=== PATIENT | male | born 1965 | race Caucasian/White ===

== ENCOUNTER 2022-03-11 00:36 | Day surgery (SDC) | payer BC, SELFPAY ==
[2022-03-03 13:49] VITALS: BMI 30.2
--- NOTE | 2022-03-03 13:55 | SUR.PREOP ---
Report to the Outpatient Waiting Room, entrance under the green pavilion located off [facility], at time 1000_ on date _03/11/22 . OR Time: _1200 . - You and your visitor will be asked a series of questions to screen for COVID 19 for your protection. - A mask is required within the hospital. Preoperative COVID Testing Requirements: No COVID Test needed if: (proof is required; if not received patient will have Rapid Test prior to entry) - Patient has received COVID Vaccine at least 14 days prior to procedure date or - Patient has positive COVID test result within last 90 days of surgery date. COVID Test needed if above criteria is not met If not COVID vaccinated a COVID test must be conducted within 72 hours of surgery and patient is asked to isolate self from time of testing until procedure. You will go to the [facility] for your COVID testing. The [facility] is located at the corner of [address] [facility]. You will only be called if COVID results are positive and your surgeon may reschedule your elective surgery date. Patients may have clear liquids (water, carbonated beverages, clear teas, apple juice) until 3 hours prior to surgery with a maximum of 20 ounces. - No food from midnight until time of surgery - Infants may have breast milk until 4 hours before surgery, formula 6 hours prior to surgery. - Children will be allowed to drink immediately following surgery. If applicable, please bring a bottle or sippy cup to assist with drinking. Juice, water, soda, and popsicles are readily available. For infants on formula, please bring formula the day of surgery. Pacifiers are allowed. Take the following medications with a SIP of water the morning of surgery: __amlodipine,sertaline,__metoprolol Medications to discontinue per physician __eliquis Date to take last dose_03/08/22 Please no make-up, nail german, hairspray, perfume, deodorant, or body powder the day of surgery. No jewelry (including any body piercings) or valuables the day of surgery, leave them at home. Please take a shower or bath the night before, or the morning of, surgery with an antibacterial soap. Wear comfortable, loose fitting clothing. Children are encouraged to wear pajamas. - Jewelry must be removed prior to entering the operating room. Rings and piercings that are not removed may be cut off. - The hospital will not accept responsibility for valuables. - Please leave all valuables, including medications, at home the day of surgery. rusty shower am of surgery If you are going home after surgery, a licensed motor coach driver must drive you home. - NO public transportation without another adult. - We recommend that an adult stay with you for 24 hours following discharge. - We also recommend that you do not drive, make important decision, drink alcoholic beverages, or take any drugs that were not prescribed by your health care provider for at least 24 hours after your discharge time. For Pediatric surgeries, we recommend two adults accompany the child home (only one inside the building at this time). One visitor will be allowed to accompany the patient into the hospital. Patients visitor will be instructed to remain with patient at all times or leave the building. We will allow the visitor to come back to the postoperative area when patient is ready. Follow any additional instructions given to you from your surgeon. Telephone instructions given to _angie greenwood and asked if any additional questions and then verbalized understanding. Patient advised to call surgeon office or pre surgery nurse liaison [phone] if any additional questions.
[2022-03-11] VITALS (11 sets, daily range): BP systolic 140–164; BP diastolic 90–102; PULSE 64–78; RESP 12–18; TEMP 36.2–36.6; O2SAT 96–100; BMI 30.1
[2022-03-11] MEDS: ACETAMINOPHEN 500 MG TABLET 1000 MG PO (10:33)
[2022-03-11] MEDS: KETOROLAC 15 MG/ML VIAL (*BKC) IV PUSH (10:33)
--- NOTE | 2022-03-11 10:34 | WPDANESEPPF ---
Anes - Initial Pre Proc Eval Procedure: Operation Date: 03/11/22 12:00 Proposed Procedures p Robotic Assisted Right Inguinal Hernia Repair with Mesh - Suly Blakely MD Date/Time: 03/11/22 10:34 Surgeon: Suly Blakely MD Pre Op Diagnosis: right inguinal hernia Patient Data Age: 56 Gender: M Height: 1.85 m Weight: 103.6 kg Last Vital Signs Temp 36.2 C L 03/11/22 10:17 Pulse 68 03/11/22 10:17 Resp 18 03/11/22 10:17 BP 152/99 H 03/11/22 10:17 Pulse Ox 100 03/11/22 10:17 Allergies Allergy/AdvReac Type Severity Reaction Status Date / Time amoxicillin Allergy Mild Skin Verified 03/11/22 10:12 Reaction Home Medications Medication Instructions Recorded Confirmed Type loratadine 10 mg tablet 10 mg PO DAILY #90 tablet 04/16/21 03/11/22 Rx albuterol sulfate 90 mcg/actuation 1 puff INHALATION Q6H PRN #8.5 g 11/17/21 03/11/22 Rx aerosol inhaler finasteride 5 mg tablet 5 mg PO DAILY 11/17/21 03/11/22 History pantoprazole 20 mg tablet,delayed 20 mg PO QAM #30 tablet 12/23/21 03/11/22 Rx release metoprolol succinate 25 mg 25 mg PO DAILY #30 tablet 01/29/22 03/11/22 Rx tablet,extended release 24 hr amlodipine 5 mg PO DAILY 03/03/22 03/11/22 History apixaban [Eliquis] 5 mg PO BID 03/03/22 03/11/22 History cyclobenzaprine 10 mg PO PRN 03/03/22 03/11/22 History furosemide 40 mg PO DAILY 03/03/22 03/11/22 History losartan 100 mg PO DAILY 03/03/22 03/11/22 History potassium chloride 20 meq PO WEEKLY 03/03/22 03/11/22 History sertraline 50 mg PO DAILY 03/03/22 03/11/22 History sildenafil (pulm.hypertension) 20 mg PO PRN 03/03/22 03/03/22 History Patient hx anesthesia problems: none Family hx anesthesia problems: none Results Review: All pre-operative results and documents have been reviewed as part of the pre-operative evaluation. [facility] Past Medical History Medical History Atrial fibrillation BMI 28.0-28.9,adult BMI 31.0-31.9,adult GERD (gastroesophageal reflux disease) History of Legionnaire's disease HTN (hypertension) Inguinal mass Legionella pneumonia Rash SOB (shortness of breath) Surgical History Surgical History Status post laparoscopic cholecystectomy Family History Family History Father Family history of Alzheimer's disease Other Hypertension Social History Social History Smoking packs per day: 1 Smoking cigarettes per day: 20.0 Years smoked: 25 Smoking pack-years: 25.00 Smoking status: Former smoker Tobacco type: cigarettes Second hand tobacco smoke exposure: No Smoking end date: 10/21/21 Additional smoking assessment comments: 1 pkd cigarettes x 15years Alcohol intake: current Drinks per week: 2 Alcohol use details: wine Substance use: current Substance use type: marijuana Other substance usage details: smoking occasionally Gender identity (if verbalized by the patient): Male Sexual Orientation (if Verbalized by the Patient): Straight or Heterosexual Spiritual care concerns: No Anes - Eval Final PreProcedure Day of Procedure 03/11/22 10:34 Patient weight: obese Heart: regular rate and rhythm Lungs: clear to auscultation and normal air movement Airway: Mallampati scale class II Neurological: alert and oriented Last oral intake: >/= 8 hours ASA classification: III Emergent: no Anesthetic plan: proceed Anesthesia type and monitoring: general ETT and standard monitoring Results Review: All pre-operative results and documents have been reviewed as part of the pre-operative evaluation. Informed Consent: The patient's anesthetic plan and its attendant risks and benefits were discussed with the patient/family/POA. Questions were solicited and answers provided to the satisfaction of the patient/family/POA
[2022-03-11] MEDS: LACTATED RINGERS 1,000 ML 30 ML IV CONT ×2 (10:41→13:43)
--- NOTE | 2022-03-11 10:45 | PM.IMHP ---
H&P: HPI History of Present Illness Date/Time: 03/11/22 10:45 Negrito is a 56 y/o male who presents to the office at the request of Dr. Arboleda for evaluation of a possible inguinal hernia. He states he has been experiencing RLQ abdominal swelling since October 2021. He states he is not experiencing any pain. He denies any problems with BM's. Pt had a CT at OSH in 11/10 that was suggestive of RIH. Chief Complaint: RIH Review of Systems Review of Systems: All systems reviewed & are unremarkable except as noted in HPI and below PMFSH Past Medical History Medical History Atrial fibrillation BMI 28.0-28.9,adult BMI 31.0-31.9,adult GERD (gastroesophageal reflux disease) History of Legionnaire's disease HTN (hypertension) Inguinal mass Legionella pneumonia Rash SOB (shortness of breath) Surgical History Surgical History Status post laparoscopic cholecystectomy Family History Family History Father Family history of Alzheimer's disease Other Hypertension Social History Social History Smoking packs per day: 1 Smoking cigarettes per day: 20.0 Years smoked: 25 Smoking pack-years: 25.00 Smoking status: Former smoker Tobacco type: cigarettes Second hand tobacco smoke exposure: No Smoking end date: 10/21/21 Additional smoking assessment comments: 1 pkd cigarettes x 15years Alcohol intake: current Drinks per week: 2 Alcohol use details: wine Substance use: current Substance use type: marijuana Other substance usage details: smoking occasionally Gender identity (if verbalized by the patient): Male Sexual Orientation (if Verbalized by the Patient): Straight or Heterosexual Spiritual care concerns: No Meds Home Medications and Allergies Home Medications Medication Instructions Recorded Confirmed Type loratadine 10 mg tablet 10 mg PO DAILY #90 tablet 04/16/21 03/11/22 Rx albuterol sulfate 90 mcg/actuation 1 puff INHALATION Q6H PRN #8.5 g 11/17/21 03/11/22 Rx aerosol inhaler finasteride 5 mg tablet 5 mg PO DAILY 11/17/21 03/11/22 History pantoprazole 20 mg tablet,delayed 20 mg PO QAM #30 tablet 12/23/21 03/11/22 Rx release metoprolol succinate 25 mg 25 mg PO DAILY #30 tablet 01/29/22 03/11/22 Rx tablet,extended release 24 hr amlodipine 5 mg PO DAILY 03/03/22 03/11/22 History apixaban [Eliquis] 5 mg PO BID 03/03/22 03/11/22 History cyclobenzaprine 10 mg PO PRN 03/03/22 03/11/22 History furosemide 40 mg PO DAILY 03/03/22 03/11/22 History losartan 100 mg PO DAILY 03/03/22 03/11/22 History potassium chloride 20 meq PO WEEKLY 03/03/22 03/11/22 History sertraline 50 mg PO DAILY 03/03/22 03/11/22 History sildenafil (pulm.hypertension) 20 mg PO PRN 03/03/22 03/03/22 History Allergies Allergy/AdvReac Type Severity Reaction Status Date / Time amoxicillin Allergy Mild Skin Verified 03/11/22 10:12 Reaction Vital Signs Vital Signs - 24 hr 03/11/22 10:17 Temperature 36.2 C L Pulse Rate 68 Respiratory Rate 18 Blood Pressure 152/99 H Pulse Oximetry 100 Exam Const: General: cooperative, comfortable and no acute distress Orientation/consciousness: patient oriented x3 Resp: Effort & Inspection: normal respiratory effort Auscultation: clear to auscultation bilaterally Cardio: Rate: regular rate Rhythm: regular rhythm GI: Inspection: normal to inspection and non-distended GI Palp: Yes Soft to palpation, No Tenderness to palpation present (GI) and No Guarding due to palpation present (GI) Other: RIH - moderate sized, reducible Assessment and Plan Assessment and plan (1) Right inguinal hernia: Code(s): K40.90 - Unilateral inguinal hernia, without obstruction or gangrene, not specified as recurrent Status: Acute Assessment and Pl
--- NOTE | 2022-03-11 10:47 | WPDHPUPDATE1 ---
History and Physical Update Update Date/Time: 03/11/22 10:47 History and Physical has been reviewed, including an updated exam of the patient. There are NO changes in the patient's condition. Risks, benefits, and alternatives have been discussed and questions answered. Patient agrees to proceed with procedure.
[2022-03-11] MEDS: ceFAZolin 2 GM/D5W 50 ML 2 GM/50 ML BAG IVPB (11:56)
--- NOTE | 2022-03-11 13:31 | P.OP_ITS ---
Procedure Note - Detailed Date of Procedure 03/11/22 Pre-op Diagnosis right inguinal hernia Post-op Diagnosis Same Procedure Performed robotic assisted right inguinal hernia repair with mesh Surgeon Suly Blakely MD Anesthesia General Indications 56-year-old male with progressively worsening right inguinal hernia over the last few years Findings indirect right inguinal hernia, large lipoma of cord Description of Procedure Patient was brought into the operating room and placed in the supine position. After adequate induction of general anesthesia, the patient was prepped and draped in normal sterile fashion. A time-out was then done to verify the patient's identity, as well as the procedure being performed. Began by making a 8 mm incision in the supraumbilical region, a Veress needle was then placed into the peritoneal cavity. CO2 gas was then insufflated and after adequate pneumoperitoneum was achieved, the Veress needle was removed. I then placed an 8 mm trocar through this incision. I then placed the endoscope through this trocar site and under direct visualization placed 2 further 8 mm ports in the right and left mid abdomen. The [employer] robot was then docked to the 3 trocar sites. I then scrubbed out and went to the robotic console. Upon examining the pelvis, it was noted that the patient had a right inguinal hernia. The left side was examined and no hernia defect was noted. I began by making a preperitoneal flap approximately 6 cm superior to the defect. This flap was carried medially past the umbilical ligaments in laterally to the transversalis. It then began dissection of my medial compartment taking this down to the pubic tubercle. I then began the lateral dissection taking this down to the transversalis fascia. Once these compartments were achieved, I began dissection around the cord structures. A moderate indirect hernia was noted at this point. Using careful dissection, was able to reduce indirect hernia sac off the cord structures. There was also noted to be a large lipoma of the cord that I also reduced. Once this was adequately done, I went ahead and placed a large piece of 3D Max mesh into the abdominal cavity. The mesh was carefully positioned, centering the center of the mesh over the indirect defect. Once this was done, was very satisfied with our repair. Using 3-0 Vicryl sutures, I tacked the mesh medially to Rui's ligament. Two lateral sutures were placed from the mesh to the transversalis fascia. I then closed the peritoneal flap with a running 2.0 V Lock suture. The abdomen was then desufflated, and all ports were removed. All incisions were then closed with the 4.0 monocryl suture. Dermabond was placed on each wound. The patient tolerated the procedure well, was extubated in the operating room postoperatively, and will now be transferred to the recovery room in stable condition. Implants large 3DMax mesh Estimated Blood Loss 10 Drains No Packing No Pathology None sent Complications No immediate complications Condition Stable Disposition PACU
[2022-03-11] MEDS: fentaNYL CITRATE INJ (*CRX) 100 MCG/2 ML VIAL 25 MCG IV PUSH ×8 (14:12→14:43)
[2022-03-11] MEDS: oxyCODONE HCL (*CRX) 5 MG TAB IR PO (15:35)
== END 2022-03-11 16:11 | disposition home or self-care (01) ==
PROVIDERS: PCP Family Medicine; Visit Provider Surgery
PROC: 8E0Y4CZ Robotic Assisted Procedure of Lower Extremity, Percutaneous Endoscopic Approach (ICD-10-PCS; CPT 49650; principal; 2022-03-11 12:00)
DX: K40.90 Unilateral inguinal hernia, without obstruction or gangrene, not specified as recurrent (principal); I10 Essential (primary) hypertension; K21.9 Gastro-esophageal reflux disease without esophagitis; I48.91 Unspecified atrial fibrillation; Z87.891 Personal history of nicotine dependence; E66.9 Obesity, unspecified; Z68.30 Body mass index [BMI] 30.0-30.9, adult; F12.90 Cannabis use, unspecified, uncomplicated; Z79.51 Long term (current) use of inhaled steroids; Z79.01 Long term (current) use of anticoagulants
CPT/HCPCS: 49650; S2900; 36415; 86850; 86900; 86901; A9270; C1781; J0690; J1100; J1170; J1885; J2250; J2405; J2704; J2710; J3010; J7030; J7120

== ENCOUNTER → 2022-07-22 08:37 | Outpatient (CLI) | payer BC, SELFPAY ==
--- NOTE | ~2022-07-22 | US_ITS ---
EXAMINATION: US abdomen complete DATE: 07/22/2022 09:02 INDICATION: Diarrhea, unspecified. TECHNIQUE: Multiple grayscale and Doppler ultrasound images of the abdomen were obtained. COMPARISON: Ultrasound 11/10/2011, CT abdomen and pelvis 08/29/2010 FINDINGS: The visualized portions of the head and body of the pancreas are normal. There is a 12 mm c yst in the liver. No liver surface nodularity. There is normal flow in main portal vein. The gallblad diana is absent. The common duct is normal and measures 6 mm. The kidneys are normal in size. The splee n is normal in size. Abdominal aorta is normal in caliber. Inferior vena cava is normal. IMPRESSION: 1. No etiology for the patient's symptoms. Reviewed, dictated and finalized at location A.
== END ==
PROVIDERS: PCP Nurse Practitioner Family; Visit Provider Nurse Practitioner Family
DX: R19.7 Diarrhea, unspecified (principal); R10.30 Lower abdominal pain, unspecified
CPT/HCPCS: 76700

== ENCOUNTER 2022-08-04 00:55 | Day surgery (SDC) | payer BC, SELFPAY ==
[2022-07-27 13:13] VITALS: BMI 31.4
[2022-07-27 13:44] VITALS: BMI 31.4
--- NOTE | 2022-07-27 13:47 | PC.NURSE ---
Phone interview for upcoming procedure completed. Instructed pt. to stop using Eliquis 2 days before procedure on 08/04/22. Pt. verbalized understanding.
--- NOTE | 2022-08-02 14:05 | PM.HPGS ---
History of Present Illness History of Present Illness Consent: Risks, benefits, and alternatives have been discussed and questions answered. Patient agrees to proceed with procedure. Chief complaint: diarrhea, abdominal pain Narrative: Negrito Garcia is a 56 year old male referred for colon cancer screening. He has a history of polyps. His last colonoscopy was 10 years ago. He recently has had very loose stools for the past several weeks accompanied by lower abdominal cramping. Review of Systems Review of Systems: All systems reviewed & are unremarkable except as noted in HPI and below PMFSH Past Medical History Medical History Atrial fibrillation BMI 28.0-28.9,adult BMI 31.0-31.9,adult GERD (gastroesophageal reflux disease) History of Legionnaire's disease HTN (hypertension) Inguinal mass Legionella pneumonia Rash SOB (shortness of breath) Surgical History Surgical History History of inguinal hernia repair ROBOTIC ASSISTED RIH REPAIR W MESH 03/11/22 Status post laparoscopic cholecystectomy Family History Family History Father Family history of Alzheimer's disease Malignant neoplasm of prostate Sibling Diverticula of colon Other Hypertension Social History Social History Smoking packs per day: 0.75 Smoking cigarettes per day: 15.0 Years smoked: 20 Smoking pack-years: 15.00 Smoking status: Current every day smoker Tobacco type: cigarettes Second hand tobacco smoke exposure: No Additional smoking assessment comments: 1 pkd cigarettes x 15years, claimed today 0.5 packs x 8 years Alcohol intake: current Drinks per week: 7 Alcohol use details: wine Substance use: never Substance use type: marijuana Other substance usage details: smoking occasionally Living arrangements: alone Gender identity (if verbalized by the patient): Male Sexual Orientation (if Verbalized by the Patient): Straight or Heterosexual Spiritual care concerns: No Meds Home Medications and Allergies Home Medications Medication Instructions Recorded Confirmed Type loratadine 10 mg tablet (Claritin) 10 mg PO DAILY #90 tabs 04/16/21 08/04/22 Rx albuterol sulfate 90 mcg/actuation 1 puff inhalation Q6H PRN 11/17/21 08/04/22 Rx aerosol inhaler shortness of breath or wheezing #8.5 grams finasteride 5 mg tablet 5 mg PO DAILY 11/17/21 08/04/22 History amlodipine 10 mg tablet 5 mg PO DAILY 03/03/22 08/04/22 History apixaban 2.5 mg tablet (Eliquis) 5 mg PO BID 03/03/22 08/04/22 History cyclobenzaprine 10 mg tablet 10 mg PO PRN 03/03/22 08/04/22 History furosemide 40 mg tablet 20 mg PO DAILY 03/03/22 08/04/22 History pantoprazole 20 mg tablet,delayed 20 mg PO QAM #30 tabs 04/20/22 08/04/22 Rx release (Protonix) acetaminophen 650 mg 650 mg PO Q8H PRN pain #30 tabs 04/28/22 08/04/22 Rx tablet,extended release (Tylenol Arthritis Pain) sildenafil 100 mg tablet 100 mg PO DAILY PRN sexual 06/17/22 08/04/22 Rx activity #5 tabs sertraline 50 mg tablet 50 mg PO DAILY #90 tabs 06/24/22 08/04/22 Rx metoprolol succinate 25 mg 25 mg PO DAILY #30 tabs 07/07/22 08/04/22 Rx tablet,extended release 24 hr Allergies Allergy/AdvReac Type Severity Reaction Status Date / Time amoxicillin Allergy Mild Skin Verified 08/04/22 07:25 Reaction Exam Resp: Auscultation: clear to auscultation bilaterally Cardio: Rate: regular rate Rhythm: regular rhythm GI: GI Palp: Yes Soft to palpation and No Tenderness to palpation present (GI) Assessment and Plan Assessment and plan (1) Colon cancer screening: Code(s): Z12.11 - Encounter for screening for malignant neoplasm of colon Status: Acute Assessment and Plan: Colonoscopy with possible biopsy or polypectomy or caut
[2022-08-04 07:26] VITALS: BP 158/107; PULSE 85; RESP 18; TEMP 36.9; O2SAT 98; BMI 30.6
[2022-08-04] MEDS: LACTATED RINGERS 1,000 ML 150 ML IV CONT (07:42)
[2022-08-04 07:44] VITALS: BP 149/96
--- NOTE | 2022-08-04 07:54 | WPDANESEPPF ---
Anes - Initial Pre Proc Eval Procedure: Operation Date: 08/04/22 08:30 Proposed Procedures p Colonoscopy - Anoop De Jesus MD Date/Time: 08/04/22 07:54 Surgeon: Anoop De Jesus MD Pre Op Diagnosis: diarrhea, abdominal pain Patient Data Age: 56 Gender: M Height: 1.83 m Weight: 102.4 kg Last Vital Signs Temp 36.9 C 08/04/22 07:26 Pulse 85 08/04/22 07:26 Resp 18 08/04/22 07:26 BP 149/96 H 08/04/22 07:44 Pulse Ox 98 08/04/22 07:26 O2 Del Method Room Air 08/04/22 07:26 Allergies Allergy/AdvReac Type Severity Reaction Status Date / Time amoxicillin Allergy Mild Skin Verified 08/04/22 07:25 Reaction Home Medications Medication Instructions Recorded Confirmed Type loratadine 10 mg tablet (Claritin) 10 mg PO DAILY #90 tabs 04/16/21 08/04/22 Rx albuterol sulfate 90 mcg/actuation 1 puff inhalation Q6H PRN 11/17/21 08/04/22 Rx aerosol inhaler shortness of breath or wheezing #8.5 grams finasteride 5 mg tablet 5 mg PO DAILY 11/17/21 08/04/22 History amlodipine 10 mg tablet 5 mg PO DAILY 03/03/22 08/04/22 History apixaban 2.5 mg tablet (Eliquis) 5 mg PO BID 03/03/22 08/04/22 History cyclobenzaprine 10 mg tablet 10 mg PO PRN 03/03/22 08/04/22 History furosemide 40 mg tablet 20 mg PO DAILY 03/03/22 08/04/22 History pantoprazole 20 mg tablet,delayed 20 mg PO QAM #30 tabs 04/20/22 08/04/22 Rx release (Protonix) acetaminophen 650 mg 650 mg PO Q8H PRN pain #30 tabs 04/28/22 08/04/22 Rx tablet,extended release (Tylenol Arthritis Pain) sildenafil 100 mg tablet 100 mg PO DAILY PRN sexual 06/17/22 08/04/22 Rx activity #5 tabs sertraline 50 mg tablet 50 mg PO DAILY #90 tabs 06/24/22 08/04/22 Rx metoprolol succinate 25 mg 25 mg PO DAILY #30 tabs 07/07/22 08/04/22 Rx tablet,extended release 24 hr Patient hx anesthesia problems: none Family hx anesthesia problems: none Results Review: All pre-operative results and documents have been reviewed as part of the pre-operative evaluation. [facility] Past Medical History Medical History Atrial fibrillation BMI 28.0-28.9,adult BMI 31.0-31.9,adult GERD (gastroesophageal reflux disease) History of Legionnaire's disease HTN (hypertension) Inguinal mass Legionella pneumonia Rash SOB (shortness of breath) Surgical History Surgical History History of inguinal hernia repair ROBOTIC ASSISTED RIH REPAIR W MESH 03/11/22 Status post laparoscopic cholecystectomy Family History Family History Father Family history of Alzheimer's disease Malignant neoplasm of prostate Sibling Diverticula of colon Other Hypertension Social History Social History Smoking packs per day: 0.75 Smoking cigarettes per day: 15.0 Years smoked: 20 Smoking pack-years: 15.00 Smoking status: Current every day smoker Tobacco type: cigarettes Second hand tobacco smoke exposure: No Additional smoking assessment comments: 1 pkd cigarettes x 15years, claimed today 0.5 packs x 8 years Alcohol intake: current Drinks per week: 7 Alcohol use details: wine Substance use: never Substance use type: marijuana Other substance usage details: smoking occasionally Living arrangements: alone Gender identity (if verbalized by the patient): Male Sexual Orientation (if Verbalized by the Patient): Straight or Heterosexual Spiritual care concerns: No Anes - Eval Final PreProcedure Day of Procedure 08/04/22 07:54 Patient weight: obese Heart: regular rate and rhythm Lungs: clear to auscultation Airway: Mallampati scale class II Neurological: alert and oriented Last oral intake: >/= 8 hours ASA classification: III Emergent: no Anesthetic plan: proceed Anesthesia type and monitoring: general GIVS and standard monitori
[2022-08-04 08:56] VITALS: BP 137/97; PULSE 77; RESP 15; O2SAT 100
[2022-08-04 09:06] VITALS: BP 184/116; PULSE 67; RESP 16; O2SAT 100
[2022-08-04] MEDS: hydrALAZINE HCL 20 MG/ML VIAL 10 MG IV PUSH (09:21)
[2022-08-04 09:33] VITALS: BP 175/108; PULSE 71; RESP 22; O2SAT 100
[2022-08-04 09:43] VITALS: BP 175/95; PULSE 75; RESP 17; O2SAT 100
--- NOTE | 2022-08-04 09:48 | SUR.PHASEII ---
Per Dr. Bhardwaj patient blood pressure is stable to go home, Patient recommended to call primary care physician to follow up with high blood pressure.
== END 2022-08-04 09:53 | disposition home or self-care (01) ==
PROVIDERS: PCP Nurse Practitioner Family; Visit Provider Internal Medicine Gastroenterology
PROC: 0DJD8ZZ Inspection of Lower Intestinal Tract, Via Natural or Artificial Opening Endoscopic (ICD-10-PCS; CPT 45378; principal; 2022-08-04 08:30)
DX: Z12.11 Encounter for screening for malignant neoplasm of colon (principal); K57.30 Diverticulosis of large intestine without perforation or abscess without bleeding; I48.91 Unspecified atrial fibrillation; K21.9 Gastro-esophageal reflux disease without esophagitis; I10 Essential (primary) hypertension; F17.210 Nicotine dependence, cigarettes, uncomplicated; F12.90 Cannabis use, unspecified, uncomplicated; E66.9 Obesity, unspecified; Z68.30 Body mass index [BMI] 30.0-30.9, adult; Z79.51 Long term (current) use of inhaled steroids; Z79.01 Long term (current) use of anticoagulants
CPT/HCPCS: 45380; 88305; J0360; J2704; J7120

== ENCOUNTER 2023-06-25 11:59 | Inpatient (IN) | payer BC, SELFPAY ==
[2023-06-25] VITALS (11 sets, daily range): BP systolic 105–138; BP diastolic 64–105; PULSE 90–116; RESP 15–18; TEMP 36.6–38.3; O2SAT 96–100; BMI 31.4
--- NOTE | ~2023-06-25 | CT_ITS ---
EXAMINATION: CT abdomen pelvis w con DATE: 06/25/2023 13:41 INDICATION: Generalized abdominal pain TECHNIQUE: Computed tomography (CT) of the abdomen and pelvis was performed with 100 mL Omnipaque-350 intravenous contrast. Automated exposure control and iterative reconstruction technique were employe d. The dose-length product was 940.49 mGy-cm. COMPARISON: 08/29/2010 FINDINGS: Mild bibasilar atelectasis. Heart size is normal. Small amount of atherosclerotic coronary artery brenda cifications. No pericardial or pleural effusion. There is dilation of the common bile duct to 1.2 cm and mild intrahepatic biliary ductal dilation, both findings are new since ultrasound dated 07/22/2022. Cholecystectomy clips in the gallbladder fossa. There are few subcentimeter low-attenuation hepatic cysts. Approximately 1 cm less well-defined and more subtle hyperenhancing lesion in segment 5 of the liver. Splenic calcification consistent with old granulomatous disease. Pancreas is normal. Thickeni ng of the bilateral adrenal glands which maintain their adreniform shape which could represent adrena l hyperplasia or small adenomas. Small focus of cortical scarring at the upper pole of the right kidn ey. 2.2 cm cyst at the upper pole of the left kidney. There are a few <4 mm stones in the right kidne y including a cluster a lower pole calyx. There is mild diverticulosis most prominent along the proxi mal sigmoid colon where there is diffuse edematous wall thickening and surrounding inflammatory stran ding. This extends over a length of approximately 10-15 cm with the stranding surrounding many of the diverticula which remains equivocal for either a localized colitis versus diverticulitis. Small amou nt of likely reactive ascites in the pelvis. No abscess or free intraperitoneal gas. Small bowel and appendix are normal. Bladder is normal. Small fat-containing left inguinal hernia. No pathologically enlarged abdominal or pelvic lymphadenopathy. Mild to moderate lumbar and lower thoracic spondylosis. IMPRESSION: 1. Edematous wall thickening and surrounding inflammatory stranding along approximately 10 to 15 cm l ength of the proximal sigmoid colon where there are multiple diverticula. The pancreas appears more d iffuse and would favor a focal colitis over diverticulitis. 2. Small amount of likely reactive ascites in the pelvis. No organized abscess or free intraperitonea l gas. 3. Mild intra and extra hepatic biliary ductal dilation which can be a normal finding postcholecystec rubi however is new since 07/22/2022 with the cholecystectomy performed in August 2010. This suggests the possibility of more recent obstruction although no discrete destructive gallstone or mass identif ied. Correlate with liver function tests and if clinically indicated could consider further evaluatio n with MRCP. 4. Indeterminate approximately 1 cm subtle hypoenhancing lesion in segment 5 of the liver which could be either benign or malignant in etiology. Consider further evaluation with pre and postcontrast MRI which could be performed in conjunction with MRCP if clinically indicated. Reviewed, dictated and finalized at location [facility]. IMPRESSION: 1. Edematous wall thickening and surrounding inflammatory stranding along appro ximately 10 to 15 cm length of the proximal sigmoid colon where there are multi ple diverticula. The pancreas appears more diffuse and would favor a focal coli tis over diverticulitis. 2. Small amount of likely reactive ascites in the pelvis. No organized abscess or free intraperitoneal gas. 3. Mild intra and extra hepatic biliary ductal dilation which can be a normal f inding postcholecystectomy however is new since 07/22/2022 with the cholecystecto my performed in August 2010. This suggests the possibility of more recent obst ruction
--- NOTE | ~2023-06-25 | MR_ITS ---
MRI of the abdomen: Clinical indication: Liver lesion, biliary dilatation. Technique: Coronal SSFSE ARC, WATER:coronal LAVA-FLEX, Coronal 2D FIESTA FatSat, Axial SSFSE BH ARC, Axial 3D DualEcho BH, Axial SSFSE-IR, Axial DWI b=500, Axial 2D FIESTA FatSat, pre and dynamic postco ntrast Axial LAVA ARC, postcontrast Coronal In and Opposed phase LAVA FLEX. Following intravenous adm inistration of 15 cc MultiHance gadolinium, T1-weighted fat-sat imaging was performed in the axial an d coronal planes. COMPARISON: CT scan dated 06/25/2023 Findings: Gallbladder is absent. The common bile duct is diffusely dilated to approximately 9 mm, wit h smooth tapering distally.. No filling defects are seen within the CBD. There is minimal intrahepati c biliary dilatation in the left hepatic lobe. The pancreatic duct is normal in size. Several small hepatic cysts are present. Spleen, pancreas, adrenals, kidneys appear normal. The aorta and the paraaortic regions appear normal. Impression: Mild intrahepatic and extra hepatic biliary dilatation, as noted above, presumably related to prior c holecystectomy. No obstructing mass lesion evident. No evidence for choledocholithiasis. Small hepatic cysts present. No suspicious hepatic lesion identified. Reviewed, dictated and finalized at [facility]. Impression: Mild intrahepatic and extra hepatic biliary dilatation, as noted above, presuma new related to prior cholecystectomy. No obstructing mass lesion evident. No ev idence for choledocholithiasis. Small hepatic cysts present. No suspicious hepatic lesion identified.
--- NOTE | 2023-06-25 12:19 | ED.ABDPAIN ---
HPI - Abdominal Pain General Chief Complaint: Abdominal Pain Stated Complaint: abd pain Time Seen by Provider: 06/25/23 12:13 Source: patient Mode of arrival: ambulatory Limitations: no limitations History of Present Illness HPI narrative: 57 years old white male came to the emergency room by private car with diffuse abdominal pain, intermittent over the last 3 days associated with nausea and liquid stool up to 3 times a day. He denies any fever, chills, vomiting or urinary symptoms. History of cholecystectomy, hypertension, atrial fibrillation on Eliquis. Patient does smoke, drink alcohol and use marijuana occasionally. Currently his main complaint is abdominal pain MD elicited complaint: abdominal pain Related Data Home Medications Medication Instructions Recorded Confirmed finasteride 5 mg tablet 5 mg PO DAILY 11/17/21 02/09/23 amlodipine 10 mg tablet 5 mg PO DAILY 03/03/22 02/09/23 apixaban 2.5 mg tablet (Eliquis) 5 mg PO BID 03/03/22 02/09/23 furosemide 40 mg tablet 20 mg PO DAILY 03/03/22 02/09/23 Allergies Allergy/AdvReac Type Severity Reaction Status Date / Time amoxicillin Allergy Mild Skin Verified 06/25/23 12:41 Reaction Review of Systems Review of Systems: All systems reviewed & are unremarkable except as noted in HPI and below PMFSH Past Medical History Medical History Atrial fibrillation BMI 28.0-28.9,adult BMI 31.0-31.9,adult BMI 32.0-32.9,adult Colonoscopy planned GERD (gastroesophageal reflux disease) History of Legionnaire's disease HTN (hypertension) Inguinal mass Legionella pneumonia Rash SOB (shortness of breath) Surgical History Surgical History H/O removal of cyst History of inguinal hernia repair ROBOTIC ASSISTED RIH REPAIR W MESH 03/11/22 Status post laparoscopic cholecystectomy Family History Family History Father Family history of Alzheimer's disease Malignant neoplasm of prostate Sibling Diverticula of colon Hypertension Mother , brain cancer No problems noted. Social History Social History Social History: 2 children partner Smoking packs per day: 0.75 Smoking cigarettes per day: 15.0 Years smoked: 20 Smoking pack-years: 15.00 Smoking status: Current every day smoker Tobacco type: cigarettes Second hand tobacco smoke exposure: No Additional smoking assessment comments: 1 pkd cigarettes x 15years, claimed today 0.5 packs x 8 years Alcohol intake: current Drinks per week: 7 Alcohol use details: wine Substance use: current Substance use type: marijuana Other substance usage details: smoking occasionally Living arrangements: with family Occupation/Education: occupation 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 Gender identity (if verbalized by the patient): Male Sexual Orientation (if Verbalized by the Patient): Straight or Heterosexual Spiritual care concerns: No Exam Narrative: General appearance: Well-developed, well-nourished Skin: Normal color Head: Normocephalic, nontraumatic Eyes: Clear conjunctiva ENT: Oropharynx normal, ears normal, nose normal Neck: Supple, nontender Chest and respiratory: Airway patent, no respiratory distress, no accessory muscle use Heart: Regular rate/rhythm Abdomen: Soft, severe diffuse tenderness mainly left lower quadrant, guarding and rebound, no organomegaly, quiet bowel sounds Vascular: Normal peripheral pulses, normal capillary refill. Musculoskeletal: Normal range of motion, nontender back Neurologic: Alert and oriented ?3, SIGNING TEACHER is normal as tested, no gross motor deficit
[2023-06-25] MEDS: HYDROmorphone HCL INJ (*CRX) 1 MG/ML SYR 0.5 MG IV PUSH (12:49)
[2023-06-25] MEDS: ONDANSETRON INJ 4 MG/2 ML VIAL IV PUSH (12:49)
[2023-06-25] MEDS: SODIUM CHLORIDE 0.9% IV 1,000 ML 999 ML IV CONT (12:49)
[2023-06-25 12:51] LABS: Basophils Percent Auto 0.2 % (0.2-1.2); Eosinophils Absolute Auto 0.1 K/mm3 (0-0.3); Eosinophils Percent Auto 0.6 % (0-4.4); Hematocrit 41.5 % (42.0-52.0); Immature Granulocyte Absolute 0.07 K/mm3 (0.00-0.031); Immature Granulocyte Percent A 0.4 % (0-0.5); Mean Corpuscular HGB Conc 33.7 g/dl (32-36); Mean Corpuscular Hemoglobin 30.2 pg (26-34); Mean Corpuscular Volume 89.6 fl (80-100); Mean Platelet Volume 9.5 fl (7.4-10.4); Monocytes Absolute Auto 1.3 K/mm3 (0.1-0.6); Neutrophils Percent Auto 84.8 % (45.5-73.1); Platelet Count Result 282 k/mm3 (150-375); Red Blood Count 4.63 M/mm3 (4.6-6.20); Red Cell Distribution Width 13.7 % (11.5-14.5); White Blood Count 16.5 K/mm3 (4.5-10.0)
[2023-06-25 12:53] LABS: Appearance Urine Clear (Clear); Bacteria Urine None Seen /hpf; Bilirubin Urine Negative (Negative); Blood Urine Trace (Negative); Color Urine Yellow (Yellow); Glucose Urine UA Negative (Negative); Ketones Urine Negative (Negative); Leukocyte Esterase Ur Negative LEU/UL (Negative); Nitrate Urine Negative (Negative); Non Pathogenic Casts 0-2; Protein Urine Negative (Negative); RBC Urine 0-2 /hpf (0-2); Specific Grav Ur 1.017 (1.001-1.035); Squamous Epithelial Cell Urine None seen /hpf (Few); WBC Urine 0-5 /hpf; pH Urine 5.5 (5.0-9.0)
[2023-06-25 13:00] LABS: Add Urine Microscopic? YES
[2023-06-25 13:02] LABS: Alanine Aminotransferase 31 U/L (6-50); Albumin Level 4.2 g/dL (3.5-5.1); Alkaline Phosphatase 83 U/L (38-126); Anion Gap 5 mmol/L (8-16); Aspartate Amino Transferase 25 U/L (17-59); Bilirubin,Total 0.8 mg/dL (0.2-1.3); Blood Urea Nitrogen 17 mg/dL (9-20); Calcium 8.7 mg/dL (8.4-10.2); Carbon Dioxide 23 mmol/L (22-30); Chloride 105 mmol/L (98-107); Estimated CRCL calculation 73 ml/min; Estimated Glomerular Filt Rate > 60; Glucose 98 mg/dL (65-110); Lipase 53 U/L (23-300); Potassium 4.1 mmol/L (3.4-5.0); Sodium 133 mmol/L (137-145)
[2023-06-25] MEDS: metroNIDAZOLE 500 MG/ISO 100ML 500 MG/100 ML BAG 100 MG IVPB ×2 (14:45→21:05)
--- NOTE | 2023-06-25 15:11 | PM.IMHP ---
H&P: HPI History of Present Illness Date/Time: 06/25/23 15:11 Chief Complaint: Abdominal pain Narrative: This is a 57-year-old male patient came to the emergency room via private car with complaints of abdominal pain that has been intermittent over the last 2 days. Patient has nausea and liquid stools up to 3 times a day. The patient denies any recent antibiotics. He denies any fever chills but now is nauseated. He has a history of having a cholecystectomy and atrial fibrillation on Eliquis. The patient denies any alcohol or marijuana use. Abdominal pelvis CT was read as following1. Edematous wall thickening and surrounding inflammatory stranding along approximately 10 to 15 cm length of the proximal sigmoid colon where there are multiple diverticula. The pancreas appears more diffuse and would favor a focal colitis over diverticulitis. 2. Small amount of likely reactive ascites in the pelvis. No organized abscess or free intraperitoneal gas. 3. Mild intra and extra hepatic biliary ductal dilation which can be a normal finding postcholecystectomy however is new since 07/22/2022 with the cholecystectomy performed in August 2010. This suggests the possibility of more recent obstruction although no discrete destructive gallstone or mass identified. Correlate with liver function tests and if clinically indicated could consider further evaluation with MRCP. 4. Indeterminate approximately 1 cm subtle hypoenhancing lesion in segment 5 of the liver which could be either benign or malignant in etiology. Consider further evaluation with pre and postcontrast MRI which could be performed in conjunction with MRCP if clinically indicated. Stool was sent for C diff. his white count 16.5. The patient was given IV fluids, Zofran, Dilaudid, Flagyl and Levaquin. Awaiting stool cultures. The patient is being admitted to observation status on the date of service of 06/25/2023. Review of Systems Review of Systems: All systems reviewed & are unremarkable except as noted in HPI and below Constitutional: Constitutional: Reports as per HPI and Reports no additional constitutional complaints Eyes: Eyes: Reports as per HPI and Reports no additional eye complaints ENT: Reports system reviewed and no additional complaints, except as documented and Reports Normal hearing present Cardiovascular: Cardiovascular: Reports no additional cardiovascular complaints Respiratory: Respiratory: Reports no additional respiratory complaints and Reports no additional respiratory complaints Gastrointestinal: Gastrointestinal: Reports as per HPI and Reports no additional gastrointestinal complaints Musculoskeletal: Musculoskeletal: Reports no additional musculoskeletal complaints Integumentary/Breasts: Skin/Breast: Reports system reviewed and no additional complaints, except as docu and Reports as per HPI Neurologic: Reports system reviewed and no additional complaints, except as documented, Reports as per HPI and Reports Normal hearing present Psychiatric: Psychiatric: Reports no additional psychiatric complaints and Reports as per HPI Endocrine: Endocrine: Reports no additional endocrine complaints Hematologic/Lymphatic: Hematologic/Lymphatic: Reports no additional hematologic/lymphatic complaints Allergic/Immunologic: Allergic/Immunologic: Reports no additional allergic/immunologic complaints [facility] Past Medical History Medical History (Updated 06/25/23 @ 21:48 by Saloni Evans NP) Atrial fibrillation BMI 28.0-28.9,adult BMI 31.0-31.9,adult BMI 32.0-32.9,adult BPH (benign prostatic hyperplasia) Colonoscopy planned Depression GERD (gastroesophageal reflux disease) History of hepatitis C Patient stated it is treated. History of Legionnaire's disease HTN (hypertension) Inguinal mass Legionella pneumonia Lower abdominal pain Rash Right inguinal hernia SOB (shortness of breath) Surgical History Surgical History (Updated 06/25/23 @ 21:48 by Saloni Evans NP)
[2023-06-25] MEDS: levoFLOXacin 750 MG/D5W 150 ML 750 MG/150 ML BAG 100 MG IVPB (15:54)
[2023-06-25] MEDS: SODIUM CHLORIDE 0.9% IV 1,000 ML 125 ML IV CONT (17:35)
--- NOTE | 2023-06-25 21:31 | PC.NURSE ---
pt stated takes multaq aka dronedarone PO bid 400 mg for afib informed FACT CHECKER Cristina and added to medication list
[2023-06-25] MEDS: APIXABAN 5 MG TABLET PO (21:41)
[2023-06-25] MEDS: DRONEDARONE HCL 400 MG TABLET PO (22:04)
[2023-06-25] MEDS: ACETAMINOPHEN 325 MG TABLET 650 MG PO (22:04)
[2023-06-26] VITALS (8 sets, daily range): BP systolic 129–176; BP diastolic 92–108; PULSE 90–97; RESP 14–20; TEMP 36.1–36.8; O2SAT 95–98
[2023-06-26] MEDS: SODIUM CHLORIDE 0.9% IV 1,000 ML 125 ML IV CONT ×2 (01:35→12:51)
[2023-06-26] MEDS: metroNIDAZOLE 500 MG/ISO 100ML 500 MG/100 ML BAG 100 MG IVPB ×3 (05:04→21:19)
--- NOTE | 2023-06-26 05:57 | PC.NURSE ---
stool samples collected and sent to lab
[2023-06-26 06:36] LABS: Basophils Absolute Auto 0.1 K/mm3 (0.0-0.1); Basophils Percent Auto 0.3 % (0.2-1.2); Eosinophils Absolute Auto 0.2 K/mm3 (0-0.3); Eosinophils Percent Auto 1.3 % (0-4.4); Hematocrit 40.6 % (42.0-52.0); Hemoglobin 13.6 g/dL (14.0-18.0); Immature Granulocyte Absolute 0.08 K/mm3 (0.00-0.031); Immature Granulocyte Percent A 0.5 % (0-0.5); Lymphocytes Absolute Auto 0.99 K/mm3 (0.9-3.2); Lymphocytes Percent Auto 6.6 % (18.3-44.2); Mean Corpuscular HGB Conc 33.5 g/dl (32-36); Mean Corpuscular Hemoglobin 30.7 pg (26-34); Mean Corpuscular Volume 91.6 fl (80-100); Mean Platelet Volume 9.7 fl (7.4-10.4); Neutrophils Absolute Auto 12.6 K/mm3 (1.3-6.7); Neutrophils Percent Auto 84.3 % (45.5-73.1); Platelet Count Result 272 k/mm3 (150-375); Red Blood Count 4.43 M/mm3 (4.6-6.20); Red Cell Distribution Width 13.6 % (11.5-14.5); White Blood Count 14.9 K/mm3 (4.5-10.0)
[2023-06-26 06:41] LABS: Lactic Acid Reflex 0.7 mmol/L (0.7-2.0)
[2023-06-26 06:42] LABS: Alanine Aminotransferase 120 U/L (6-50); Albumin Level 3.7 g/dL (3.5-5.1); Alkaline Phosphatase 96 U/L (38-126); Anion Gap 9 mmol/L (8-16); Aspartate Amino Transferase 75 U/L (17-59); Bilirubin,Total 1.2 mg/dL (0.2-1.3); Blood Urea Nitrogen 12 mg/dL (9-20); Calcium 8.1 mg/dL (8.4-10.2); Carbon Dioxide 20 mmol/L (22-30); Chloride 105 mmol/L (98-107); Estimated CRCL calculation 97 ml/min; Estimated Glomerular Filt Rate > 60; Glucose 95 mg/dL (65-110); Magnesium 1.7 mg/dL (1.6-2.3); Potassium 4.3 mmol/L (3.4-5.0); Sodium 134 mmol/L (137-145)
[2023-06-26 07:21] LABS: Toxigenic C. Diff NEGATIVE (NEGATIVE)
[2023-06-26] MEDS: SERTRALINE HCL 50 MG TABLET PO (08:30)
[2023-06-26] MEDS: APIXABAN 5 MG TABLET PO ×2 (08:31→15:47)
[2023-06-26] MEDS: FINASTERIDE 5 MG TABLET PO (08:31)
[2023-06-26] MEDS: PANTOPRAZOLE SOD SESQUIHYDRATE 20 MG TAB PO (08:31)
[2023-06-26] MEDS: DRONEDARONE HCL 400 MG TABLET PO ×2 (08:31→20:07)
[2023-06-26] MEDS: FUROSEMIDE 20 MG TABLET PO (08:31)
[2023-06-26] MEDS: amLODIPine BESYLATE 5 MG TABLET PO (08:32)
[2023-06-26] MEDS: METOPROLOL SUCCINATE EXT REL 50 MG TABCR PO (08:32)
[2023-06-26] MEDS: ACETAMINOPHEN 325 MG TABLET 650 MG PO (08:34)
[2023-06-26] MEDS: MORPHINE SULFATE (*CRX) 4 MG/ML INJ IV PUSH ×2 (11:40→21:18)
[2023-06-26] MEDS: ONDANSETRON INJ 4 MG/2 ML VIAL IV PUSH (11:40)
--- NOTE | 2023-06-26 13:20 | PM.IMPN ---
Progress Note: A&P Assessment and Plan (1) Colitis: Code(s): K52.9 - Noninfective gastroenteritis and colitis, unspecified Status: Acute Assessment and Plan: C diff was negative. Patient on IV antibiotics. Pain and nausea medications ordered. (2) Liver mass: Code(s): R16.0 - Hepatomegaly, not elsewhere classified Status: Acute Assessment and Plan: 1 cm liver mass identified on CT scan, MRI obtained. (3) Atrial fibrillation: Qualifiers: Atrial fibrillation type: unspecified Qualified Code(s): I48.91 - Unspecified atrial fibrillation Code(s): I48.91 - Unspecified atrial fibrillation Status: Acute Assessment and Plan: Anticoagulated on Eliquis rate controlled with metoprolol. (4) HTN (hypertension): Qualifiers: Hypertension type: primary hypertension Qualified Code(s): I10 - Essential (primary) hypertension Code(s): I10 - Essential (primary) hypertension Status: Acute Assessment and Plan: Stable, continue home medications, blood pressure reviewed on 06/26 (5) Anxiety: Code(s): F41.9 - Anxiety disorder, unspecified Status: Acute Assessment and Plan: Continue home medications, control pain and nausea Time Spent With Patient Time with patient: 25 - 35 minutes Subjective Date/time seen: 06/26/23 13:20 Interval history: 06/26: Patient admitted overnight due to diffuse abdominal pain, diarrhea, nausea, liver mass and discolored urine. Prior history cholecystectomy. Patient complains lower abdominal pain and nausea upon evaluation. RN notified and pain medication ordered. Patient to have MRI of liver and MRCP. Review of Systems Review of Systems: All systems reviewed & are unremarkable except as noted in HPI and below Exam Narrative: GENERAL: Generally well appearing, alert and oriented, mild to moderate pain apparent distress. He is pleasant and conversant in full sentences. HEENT: Pupils are equally round and briskly reactive to light. Extraocular muscles are intact. Oral mucous membranes are moist without lesions. NECK: The patient has no noted JVD. No adenopathy is appreciated. CHEST/LUNGS: Lungs are clear bilaterally without rhonchi, rales, or wheezes. There is no subcutaneous air appreciated. There is no tenderness to the chest wall. HEART: The patient has a regular rate with irregular rhythm, history of AFib on Eliquis. No murmurs, rubs, or gallops are appreciated. Distal pulses are 2+. ABDOMEN: The patient?s abdomen is mildly distended, tender bilateral lower quadrants without rebound or guarding, no epigastric or right upper quadrant tenderness. Bowel sounds are positive. EXTREMITIES: The patient has no peripheral edema. There is no focal long bone tenderness or deformity. SKIN: The patient?s skin is warm and dry, without rashes or lesions. PSYCHIATRIC: The patient has normal mental status and has an appropriate affect. NEUROLOGIC: There are no gross deficits to the cranial nerves. Patient ambulates with steady gait. Objective Data Vital Signs Vital Signs: Vital Signs - 24 hr 06/25/23 13:43 06/25/23 14:58 06/25/23 15:21 Temperature Pulse Rate 90 98 96 Respiratory Rate 18 15 17 Blood Pressure 135/105 H 120/85 105/64 Pulse Oximetry 100 100 99 Oxygen Delivery 06/25/23 16:53 06/25/23 18:04 06/25/23 20:00 Temperature Pulse Rate 90 Respiratory Rate 18 Blood Pressure 135/92 H Pulse Oximetry 97 97 Oxygen Delivery Room Air Room Air 06/25/23 22:04 06/25/23 22:04 06/25/23 22:00 Temperature 38.3 C H 38.3 C H Pulse Rate 94 94 Respiratory Rate 18 Blood Pressure 135/84 Pulse Oximetry 96 Oxygen Delivery 06/25/23 23:27 06/26/23 06:00 06/26/23 08:31 Temperature 36.6 C 36.8 C Pulse Rate 97 97 Respiratory Rate 14 Blood Pressure 138/92 H Pulse Oximetry 97 Oxygen Delivery 06/26/23 08:32 06/26/23 08:30 Temperature Pulse Rate 97
[2023-06-26] MEDS: levoFLOXacin 750 MG/D5W 150 ML 750 MG/150 ML BAG 100 MG IVPB (15:47)
--- NOTE | 2023-06-26 21:39 | PC.NURSE ---
pt bp elevated informed DIGITAL COMPOSER Cristina 178/108 manual, 5mg IV metroprolol once for elevated bp
[2023-06-26] MEDS: METOPROLOL TARTRATE INJ 5 MG/5 ML VIAL IV PUSH (21:55)
[2023-06-27 00:05] VITALS: BP 153/113; PULSE 90
[2023-06-27] MEDS: SODIUM CHLORIDE 0.9% IV 1,000 ML 125 ML IV CONT ×3 (03:59→14:56)
--- NOTE | 2023-06-27 04:33 | PC.NURSE ---
pt reported very bright red bloody bm, informed DO Hopen, stat cbc and cmp ordered holding Eliquis at this time.
[2023-06-27 04:55] LABS: Basophils Percent Auto 0.3 % (0.2-1.2); Eosinophils Absolute Auto 0.3 K/mm3 (0-0.3); Eosinophils Percent Auto 2.2 % (0-4.4); Hematocrit 39.6 % (42.0-52.0); Hemoglobin 13.3 g/dL (14.0-18.0); Immature Granulocyte Absolute 0.04 K/mm3 (0.00-0.031); Immature Granulocyte Percent A 0.3 % (0-0.5); Lymphocytes Absolute Auto 1.07 K/mm3 (0.9-3.2); Lymphocytes Percent Auto 9.3 % (18.3-44.2); Mean Corpuscular HGB Conc 33.6 g/dl (32-36); Mean Corpuscular Hemoglobin 30.2 pg (26-34); Mean Corpuscular Volume 89.8 fl (80-100); Mean Platelet Volume 9.5 fl (7.4-10.4); Monocytes Absolute Auto 0.9 K/mm3 (0.1-0.6); Monocytes Percent Auto 7.5 % (2.6-8.5); Neutrophils Absolute Auto 9.3 K/mm3 (1.3-6.7); Neutrophils Percent Auto 80.4 % (45.5-73.1); Platelet Count Result 278 k/mm3 (150-375); Red Blood Count 4.41 M/mm3 (4.6-6.20); Red Cell Distribution Width 13.4 % (11.5-14.5); White Blood Count 11.5 K/mm3 (4.5-10.0)
[2023-06-27 05:04] LABS: Alanine Aminotransferase 361 U/L (6-50); Albumin Level 3.5 g/dL (3.5-5.1); Alkaline Phosphatase 193 U/L (38-126); Anion Gap 5 mmol/L (8-16); Aspartate Amino Transferase 297 U/L (17-59); Blood Urea Nitrogen 9 mg/dL (9-20); Calcium 8.3 mg/dL (8.4-10.2); Carbon Dioxide 22 mmol/L (22-30); Chloride 106 mmol/L (98-107); Estimated CRCL calculation 97 ml/min; Estimated Glomerular Filt Rate > 60; Glucose 94 mg/dL (65-110); Potassium 3.8 mmol/L (3.4-5.0); Sodium 133 mmol/L (137-145)
[2023-06-27] MEDS: metroNIDAZOLE 500 MG/ISO 100ML 500 MG/100 ML BAG 100 MG IVPB ×3 (05:08→21:07)
--- NOTE | 2023-06-27 05:41 | PC.NURSE ---
DO Ayala was informed about elevated bp 172/102 nno
[2023-06-27 06:00] VITALS: BP 172/102; PULSE 110; RESP 16; TEMP 36.3; O2SAT 95
[2023-06-27 09:26] VITALS: PULSE 95
[2023-06-27] MEDS: METOPROLOL SUCCINATE EXT REL 50 MG TABCR PO (09:26)
[2023-06-27] MEDS: PANTOPRAZOLE SOD SESQUIHYDRATE 20 MG TAB PO (09:26)
[2023-06-27] MEDS: SERTRALINE HCL 50 MG TABLET PO (09:26)
[2023-06-27] MEDS: DRONEDARONE HCL 400 MG TABLET PO ×2 (09:26→20:15)
[2023-06-27] MEDS: FINASTERIDE 5 MG TABLET PO (09:27)
[2023-06-27] MEDS: FUROSEMIDE 20 MG TABLET PO (09:27)
[2023-06-27] MEDS: amLODIPine BESYLATE 5 MG TABLET PO (09:27)
--- NOTE | 2023-06-27 11:04 | PM.IMPN ---
Progress Note: A&P Assessment and Plan (1) Colitis: Code(s): K52.9 - Noninfective gastroenteritis and colitis, unspecified Status: Acute Assessment and Plan: C diff was negative. Patient on IV antibiotics. Pain and nausea medications ordered. 06/27: New bright red blood per rectum (2) Transaminitis: Code(s): R74.01 - Elevation of levels of liver transaminase levels Status: Acute Assessment and Plan: History of hepatitis C, previously treated, MRCP without obvious blockage. Will consult GI (3) Bright red blood per rectum: Code(s): K62.5 - Hemorrhage of anus and rectum Status: Acute Assessment and Plan: GI consulted (4) Atrial fibrillation: Qualifiers: Atrial fibrillation type: unspecified Qualified Code(s): I48.91 - Unspecified atrial fibrillation Code(s): I48.91 - Unspecified atrial fibrillation Status: Acute Assessment and Plan: Anticoagulated on Eliquis rate controlled with metoprolol. (5) HTN (hypertension): Qualifiers: Hypertension type: primary hypertension Qualified Code(s): I10 - Essential (primary) hypertension Code(s): I10 - Essential (primary) hypertension Status: Acute Assessment and Plan: Stable, continue home medications, blood pressure reviewed on 06/27, elevated today (6) Anxiety: Code(s): F41.9 - Anxiety disorder, unspecified Status: Acute Assessment and Plan: Continue home medications, control pain and nausea (7) Liver mass: Code(s): R16.0 - Hepatomegaly, not elsewhere classified Status: Acute Assessment and Plan: MRCP shows liver cyst, no concerning mass Time Spent With Patient Time with patient: 25 - 35 minutes Subjective Date/time seen: 06/27/23 11:04 Interval history: 06/26: Patient admitted overnight due to diffuse abdominal pain, diarrhea, nausea, liver mass and discolored urine. Prior history cholecystectomy. Patient complains lower abdominal pain and nausea upon evaluation. RN notified and pain medication ordered. Patient to have MRI of liver and MRCP. 06/27: Overnight patient had episode of bright red blood per rectum, stable H&H. Liver enzymes rising despite encouraging MRCP. Patient still complaining of bilateral lower abdominal cramping pain and tenderness to abdomen. Will consult GI. Review of Systems Review of Systems: All systems reviewed & are unremarkable except as noted in HPI and below Exam Narrative: GENERAL: Generally well appearing, alert and oriented, mild to moderate pain apparent distress. He is pleasant and conversant in full sentences. HEENT: Pupils are equally round and briskly reactive to light. Extraocular muscles are intact. Oral mucous membranes are moist without lesions. NECK: The patient has no noted JVD. No adenopathy is appreciated. CHEST/LUNGS: Lungs are clear bilaterally without rhonchi, rales, or wheezes. There is no subcutaneous air appreciated. There is no tenderness to the chest wall. HEART: The patient has a regular rate with irregular rhythm, history of AFib on Eliquis. No murmurs, rubs, or gallops are appreciated. Distal pulses are 2+. ABDOMEN: The patient?s abdomen is mildly distended, tender bilateral lower quadrants without rebound or guarding, no epigastric or right upper quadrant tenderness. Bowel sounds are positive. EXTREMITIES: The patient has no peripheral edema. There is no focal long bone tenderness or deformity. SKIN: The patient?s skin is warm and dry, without rashes or lesions. PSYCHIATRIC: The patient has normal mental status and has an appropriate affect. NEUROLOGIC: There are no gross deficits to the cranial nerves. Patient ambulates with steady gait. Objective Data Vital Signs Vital Signs: Vital Signs - 24 hr 06/26/23 14:00 06/26/23 20:07 06/26/23 20:00 Temperature 36.7 C Pulse Rate 90 96 Respiratory Rate 16 Blood Pressure 129/99 H Pulse Oximetry 98 9
[2023-06-27 13:23] VITALS: BP 133/93; PULSE 80; RESP 16; TEMP 36.2; O2SAT 98
[2023-06-27] MEDS: MORPHINE SULFATE (*CRX) 4 MG/ML INJ IV PUSH ×2 (14:55→20:16)
--- NOTE | 2023-06-27 17:03 | WPDGICN ---
Assessment and Plan Assessment and plan (1) Colitis: Code(s): K52.9 - Noninfective gastroenteritis and colitis, unspecified Status: Acute Assessment and Plan: caused of symptoms better with iv antibiotics differential includes ischemic but clinically improved with only minimal pain now (noted blood in stools but clearing out), infectious (stool sample negative thus far), less likely diverticulitis if better probably home tomorrow with oral abx had colonoscopy last year, no need to repeat just yet but will need follow-up office (2) Bloody diarrhea: Code(s): R19.7 - Diarrhea, unspecified Status: Acute Assessment and Plan: improving (3) Transaminitis: Code(s): R74.01 - Elevation of levels of liver transaminase levels Status: Acute Assessment and Plan: probably from active infection/colitis s/p hcv treatment (we can check RNA) MRCP negative (4) Abdominal pain: Qualifiers: Abdominal location: left lower quadrant Qualified Code(s): R10.32 - Left lower quadrant pain Code(s): R10.9 - Unspecified abdominal pain Status: Acute Assessment and Plan: better (5) Atrial fibrillation: Qualifiers: Atrial fibrillation type: unspecified Qualified Code(s): I48.91 - Unspecified atrial fibrillation Code(s): I48.91 - Unspecified atrial fibrillation Status: Acute (6) Colon, diverticulosis: Code(s): K57.30 - Diverticulosis of large intestine without perforation or abscess without bleeding Status: Acute (7) Status post laparoscopic cholecystectomy: Code(s): Z90.49 - Acquired absence of other specified parts of digestive tract Status: Acute Assessment and Plan: mild dilated bile duct mrcp negative otherwise GI Consult Note Consult date/time: 06/27/23 17:03 Reason for consult: colitis, elevated lft HPI: Negrito Garcia is a 57 year old male with pafib s/p cardioversion last month on eliquis, diverticulosis (last colonoscopy [address] De Jesus, random bx normal colon), HTN. 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 The patient denies any recent antibiotics, no fever. He had cholecystectomy.??CT scan showed edematous wall thickening and surrounding inflammatory stranding along approximately 10 to 15 cm length of the proximal sigmoid colon where there are multiple diverticula, would favor a focal colitis over diverticulitis. Mild intra and extra hepatic biliary ductal dilation which can be a normal finding postcholecystectomy, small liver cyst. Then MRCP without acute biliary findings. Noted transaminases 200's, normal bili, wbc 16k but now trending down. Started on antibiotics, pain better and tolerating liquid diet. Had HCV treated 5 years ago successfully. Alcohol only socially. Review of Systems Constitutional: Constitutional: Denies chills Eyes: Eyes: Denies blurry vision ENT: Reports Normal hearing present Cardiovascular: Cardiovascular: Denies chest pain Respiratory: Respiratory: Denies cough Gastrointestinal: Gastrointestinal: Reports abdominal pain, Reports diarrhea and Reports nausea Genitourinary: Genitourinary: Denies dysuria Musculoskeletal: Musculoskeletal: Denies arthralgias Integumentary/Breasts: Skin/Breast: Denies rash Neurologic: Denies Abnormal speech present Psychiatric: Psychiatric: Denies anxiety [facility] Past Medical History Medical History (Updated 06/27/23 @ 17:09 by Elliot Pugh MD) Atrial fibrillation Bloody diarrhea BMI 28.0-28.9,adult BMI 31.0-31.9,adult BMI 32.0-32.9,adult BPH (benign prostatic hyperplasia) Colon, diverticulosis Colonoscopy planned Depression GERD (gastroesophageal reflux disease) History of hepatitis C Patient stated it is treated. History of [place]
[2023-06-27] MEDS: levoFLOXacin 750 MG/D5W 150 ML 750 MG/150 ML BAG 100 MG IVPB (17:08)
[2023-06-27 20:15] VITALS: PULSE 74
[2023-06-27 21:53] VITALS: BP 132/94; PULSE 106; RESP 18; TEMP 36.4; O2SAT 97
[2023-06-28] MEDS: SODIUM CHLORIDE 0.9% IV 1,000 ML 125 ML IV CONT (00:02)
[2023-06-28] MEDS: MORPHINE SULFATE (*CRX) 4 MG/ML INJ IV PUSH (00:10)
[2023-06-28 06:00] VITALS: BP 133/82; PULSE 98; RESP 16; TEMP 36.8; O2SAT 97
[2023-06-28] MEDS: metroNIDAZOLE 500 MG/ISO 100ML 500 MG/100 ML BAG 100 MG IVPB (06:06)
[2023-06-28 07:37] LABS: Alanine Aminotransferase 324 U/L (6-50); Albumin Level 2.9 g/dL (3.5-5.1); Alkaline Phosphatase 244 U/L (38-126); Anion Gap 6 mmol/L (8-16); Aspartate Amino Transferase 253 U/L (17-59); Bilirubin,Total 0.6 mg/dL (0.2-1.3); Blood Urea Nitrogen 11 mg/dL (9-20); Calcium 7.9 mg/dL (8.4-10.2); Carbon Dioxide 21 mmol/L (22-30); Chloride 108 mmol/L (98-107); Estimated CRCL calculation 97 ml/min; Estimated Glomerular Filt Rate > 60; Glucose 94 mg/dL (65-110); Sodium 135 mmol/L (137-145)
--- NOTE | 2023-06-28 08:54 | PM.DS ---
DS: Admitting Diagnosis Discharge Date 06/28/2023 Admitting Diagnosis Colitis Liver mass Atrial fibrillation Anxiety Hypertension BPH DS: Discharge Diagnosis Discharge Diagnosis (1) Colitis: Code(s): K52.9 - Noninfective gastroenteritis and colitis, unspecified Status: Acute (2) Transaminitis: Code(s): R74.01 - Elevation of levels of liver transaminase levels Status: Acute (3) Bright red blood per rectum: Code(s): K62.5 - Hemorrhage of anus and rectum Status: Acute (4) Atrial fibrillation: Qualifiers: Atrial fibrillation type: unspecified Qualified Code(s): I48.91 - Unspecified atrial fibrillation Code(s): I48.91 - Unspecified atrial fibrillation Status: Acute (5) HTN (hypertension): Qualifiers: Hypertension type: primary hypertension Qualified Code(s): I10 - Essential (primary) hypertension Code(s): I10 - Essential (primary) hypertension Status: Acute (6) Anxiety: Code(s): F41.9 - Anxiety disorder, unspecified Status: Acute (7) History of hepatitis C: Code(s): Z86.19 - Personal history of other infectious and parasitic diseases Status: Acute DS: Summary Hospital Course Reason for hospitalization: Patient presented to the emergency department due to abdominal pain and nausea with liquid stools. Patient had findings of colitis overlying diverticulum and a liver mass. He was admitted for antibiotics and pain control. Hospital Course: Patient was admitted had an MRCP completed with no obstruction noted in the ductal system. Patient had episode of bright red bleeding per rectum and continued pain or despite pain medication. Liver enzymes had also risen significantly. Gastroenterology was consulted the patient was being feel better and his H&H remained stable. Patient recently colonoscopy about a year ago. Patient will follow-up in the clinic with gastroenterology. His condition improved significantly and he was feeling well enough for discharge today. Prescription for Levaquin, metronidazole, ondansetron and cyclobenzaprine sent to preferred pharmacy. Status at Discharge Cognitive/behavioral status at discharge: Awake, alert, oriented pleasant Functional status at discharge: independent ambulation Overall status at discharge: patient is progressing back to baseline Time Spent with Patient Time attestation: Total time spent providing and/or coordinating discharge services: Time spent: Less than 30 minutes Exam Const: General: comfortable and no acute distress HENMT: Face/Nose/Sinus: Normal nares present Eyes: General: appearance normal, both eyes and all related structures Neck: Neck: no JVD Resp: Auscultation: clear to auscultation bilaterally Cardio: Rate: regular rate Rhythm: regular rhythm GI: Inspection: non-distended GI Palp: Yes Soft to palpation, No Tenderness to palpation present (GI) and No Guarding due to palpation present (GI) Auscultation: normal bowel sounds Skin: General skin exam: normal color Neuro: Speech: normal speech Motor exam (neuro): 5/5 motor strength present throughout Extrem: General: normal to inspection Psych: Mental Status: mental status grossly normal DS: Data Data Completed and Pending Completed studies during hospitalization: Abdomen pelvis CT and MRCP Pending studies at discharge: Hepatitis C virus RNA, GI will follow Labs on day of discharge: Labs from last 24 hours 06/28/23 06:28 Sodium 135 L Potassium 4.0 Chloride 108 H Carbon Dioxide 21 L Anion Gap 6 L BUN 11 Creatinine 0.90 Estim Creat Clear Calc 97 Estimated GFR > 60 Glucose 94 Calcium 7.9 L Total Bilirubin 0.6 AST 253 H ALT 324 H Alkaline Phosphatase 244 H Total Protein 5.0 L Albumin 2.9 L HCV RNA (PCR) IUs/ml Pending HCV RNA PCR log IUs/ml Pending Preliminary micro results at discharge 06/25/23 22:34 Blood Culture - Preliminary Blood
[2023-06-28 09:00] VITALS: O2SAT 98
[2023-06-28 09:06] VITALS: PULSE 116
[2023-06-28] MEDS: amLODIPine BESYLATE 5 MG TABLET PO (09:06)
[2023-06-28] MEDS: DRONEDARONE HCL 400 MG TABLET PO (09:06)
[2023-06-28 09:07] VITALS: PULSE 116
[2023-06-28] MEDS: METOPROLOL SUCCINATE EXT REL 50 MG TABCR PO (09:07)
[2023-06-28] MEDS: FUROSEMIDE 20 MG TABLET PO (09:07)
[2023-06-28] MEDS: SERTRALINE HCL 50 MG TABLET PO (09:07)
[2023-06-28] MEDS: FINASTERIDE 5 MG TABLET PO (09:07)
[2023-06-28] MEDS: PANTOPRAZOLE SOD SESQUIHYDRATE 20 MG TAB PO (09:07)
[2023-06-28] MEDS: CYCLOBENZAPRINE HCL 10 MG TABLET PO (09:10)
[2023-06-28 10:04] VITALS: PULSE 78
--- NOTE | 2023-06-28 12:49 | WPDGIPROGNO ---
Progress Note: A&P Assessment and Plan (1) Colitis: Code(s): K52.9 - Noninfective gastroenteritis and colitis, unspecified Status: Acute Assessment and Plan: overall better (ischemic vs infectious) he will home with 4 more days of oral abx had colonoscopy last year (2) Bloody diarrhea: Code(s): R19.7 - Diarrhea, unspecified Status: Acute Assessment and Plan: almost resolved wbc down to 11k h/h stable (3) Colon, diverticulosis: Code(s): K57.30 - Diverticulosis of large intestine without perforation or abscess without bleeding Status: Acute (4) Transaminitis: Code(s): R74.01 - Elevation of levels of liver transaminase levels Status: Acute Assessment and Plan: probably from acute infection hcv RNA pending repeat as outpatient once colitis is resolved Subjective Date/time seen: 06/28/23 12:49 Interval history: feeling much better, pain almost gone, less blood in stool tolerating diet and going home later today Review of Systems Review of Systems: All systems reviewed & are unremarkable except as noted in HPI and below Exam Const: General: comfortable and no acute distress HENMT: Face/Nose/Sinus: Normal nares present Eyes: General: appearance normal, both eyes and all related structures Neck: Neck: no JVD Resp: Auscultation: clear to auscultation bilaterally Cardio: Rate: regular rate Rhythm: regular rhythm GI: Inspection: non-distended GI Palp: Yes Soft to palpation, No Tenderness to palpation present (GI) and No Guarding due to palpation present (GI) Auscultation: normal bowel sounds Skin: General skin exam: normal color Neuro: Speech: normal speech Motor exam (neuro): 5/5 motor strength present throughout Extrem: General: normal to inspection Psych: Mental Status: mental status grossly normal Objective Data Vital Signs Vital Signs: Vital Signs - 24 hr 06/27/23 13:23 06/27/23 20:15 06/27/23 21:53 Temperature 97.2 F L 97.5 F L Pulse Rate 80 74 106 H Respiratory Rate 16 18 Blood Pressure 133/93 H 132/94 H Pulse Oximetry 98 97 Oxygen Delivery 06/28/23 06:00 06/28/23 09:06 06/28/23 09:07 Temperature 98.2 F Pulse Rate 98 116 H 116 H Respiratory Rate 16 Blood Pressure 133/82 Pulse Oximetry 97 Oxygen Delivery 06/28/23 10:04 06/28/23 09:00 Temperature Pulse Rate 78 Respiratory Rate Blood Pressure Pulse Oximetry 98 Oxygen Delivery Room Air Intake/Output Intake/Output: Intake & Output 06/25/23 06/26/23 06/27/23 06/28/23 23:59 23:59 23:59 23:59 Intake Total 1436 3710 6290 610 Output Total 450 Balance 1436 3710 5840 610 Meds/Results Medications: Active Medications Generic Name Dose Route Start Last Admin Trade Name Freq PRN Reason Stop Dose Admin Acetaminophen 650 mg 06/25/23 20:17 06/26/23 08:34 Acetaminophen 325 Mg Tablet PO 650 mg Q8H PRN Administration pain Albuterol 1 puff 06/25/23 20:17 Albuterol Sulfate (*Sp) Aerosol 1 Puff INHALATION Q6H PRN shortness of breath or wheezing Amlodipine Besylate 5 mg 06/26/23 09:00 06/28/23 09:06 Amlodipine Besylate 5 Mg Tablet PO 5 mg DAILY EZEQUIEL Administration Apixaban 5 mg 06/25/23 20:20 06/27/23 04:34 Apixaban 5 Mg Tablet PO Not Given BID EZEQUIEL Cyclobenzaprine HCl 10 mg 06/26/23 07:25 06/28/23 09:10 Cyclobenzaprine Hcl 10 Mg Tablet PO 10 mg Q8H PRN Administration Muscle Spasm Dronedarone 400 mg 06/25/23 22:00 06/28/23 09:06 Dronedarone Hcl 400 Mg Tablet PO 400 mg Q12HR EZEQUIEL Administration Finasteride 5 mg 06/26/23 09:00 06/28/23 09:07 Finasteride 5 Mg Tablet PO 5 mg DAILY EZEQUIEL Administration Furosemide 20 mg 06/26/23 09:00 06/28/23 09:07 Furosemide 20 Mg Tablet PO 20 mg DAILY EZEQUIEL Administration Metronidazole 500 mg in 100 mls @ 100 mls/hr 06/25/23 22:00 06/28/23 07:06 Flagyl 500 Mg/Iso Soln 100 Ml IVP
[2023-06-28 13:30] VITALS: BP 117/90; PULSE 100; RESP 18; TEMP 36.2; O2SAT 100
[2023-07-01 07:38] LABS: Hepatitis C RNA, Quant PCR <15 IU/mL
== END 2023-06-28 13:40 | disposition home or self-care (01) | DRG 392 ==
LOC: ANHED 14:28 → ANH3MEDSUR 16:44
PROVIDERS: Internal Medicine; Internal Medicine Gastroenterology; Nurse Practitioner; Admitting Provider Family Medicine; Emergency Provider Emergency Medicine; PCP Family Medicine; Visit Provider Nurse Practitioner
DX: K52.9 Noninfective gastroenteritis and colitis, unspecified (principal); K62.5 Hemorrhage of anus and rectum; R16.0 Hepatomegaly, not elsewhere classified; F41.9 Anxiety disorder, unspecified; F17.210 Nicotine dependence, cigarettes, uncomplicated; I48.0 Paroxysmal atrial fibrillation; I10 Essential (primary) hypertension; K57.90 Diverticulosis of intestine, part unspecified, without perforation or abscess without bleeding; K21.9 Gastro-esophageal reflux disease without esophagitis; N40.0 Benign prostatic hyperplasia without lower urinary tract symptoms; R74.01 Elevation of levels of liver transaminase levels; Z90.49 Acquired absence of other specified parts of digestive tract; Z79.01 Long term (current) use of anticoagulants
CPT/HCPCS: 36415; 74177; 74183; 76376; 80053; 81001; 83605; 83690; 83735; 84443; 85025; 87040; 87045; 87427; 87449; 87493; 87522; 96361; 96365; 96375; 96376; 99285; A9270; A9577; G0378; J1170; J1836; J1956; J2270; J2405; J7030; Q9967

== ENCOUNTER 2025-03-28 12:35 | Outpatient (CLI) | payer OTHER, SELFPAY ==
--- NOTE | ~2025-03-28 | MR_ITS ---
EXAMINATION: MR knee RT wo con DATE: 03/28/2025 12:59 INDICATION: Chronic right knee pain TECHNIQUE: Magnetic resonance imaging (MRI) of the right knee was performed without intravenous contr ast. Sequences included coronal PD-weighted FSE, coronal PD-weighted FS FSE, sagittal T2-weighted FS E, sagittal PD-weighted FS FSE and axial PD weighted fat saturated FSE. COMPARISON: None. FINDINGS: Medial compartment: Complex tear of the body and posterior horn of the medial meniscus. There is partial thickness chondr al ulceration along the weightbearing medial femoral condyle most prominent at the central weightbear ing condyle where it involves at least 50% the cartilage thickness. Additional nonuniform mild partia l-thickness cartilage loss with smooth chondral surface along the medial tibial plateau. Lateral compartment: Complex tear involving the inner third of the posterior horn of the lateral meniscus. Articular carti estefanía is normal. Patellofemoral compartment: Articular cartilage is normal. Ligaments and tendons: Anterior and posterior cruciate ligaments are normal. The medial collateral ligament and fibular royal ateral ligament complex are normal. The extensor mechanism is normal. The visualized medial and later al hamstring tendons as well as the iliotibial band are normal. Fluid: Large right knee joint effusion. Small Tang's cyst. No loose osteochondral bodies identified. Osseous/other: Normal marrow signal. No fracture or pathologic marrow replacing process. IMPRESSION: 1. Complex tear of the body and posterior horn of the medial meniscus smaller region of complex tear at the inner third of the posterior horn of the lateral meniscus. 2. 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 3. Large knee joint effusion and small Tang's cyst. Reviewed, dictated and finalized at location A. IMPRESSION: 1. Complex tear of the body and posterior horn of the medial meniscus smaller r egion of complex tear at the inner third of the posterior horn of the lateral m eniscus. 2. Mild osteoarthritis with moderate grade chondral malacia the medial compartm ent. 3. Large knee joint effusion and small Tang's cyst.
== END 2025-03-28 12:36 | disposition home or self-care (01) ==
PROVIDERS: PCP Student in an Organized Health Care Education/Training Program; Visit Provider Student in an Organized Health Care Education/Training Program
DX: S83.231A Complex tear of medial meniscus, current injury, right knee, initial encounter (principal); X58.XXXA Exposure to other specified factors, initial encounter; M17.11 Unilateral primary osteoarthritis, right knee; M25.461 Effusion, right knee; M71.21 Synovial cyst of popliteal space [Baker], right knee
CPT/HCPCS: 73721

== ENCOUNTER 2025-10-29 08:17 | Outpatient (CLI) | payer OTHER, SELFPAY ==
[2025-10-29 08:57] LABS: INR 1.0; Prothrombin Time 13.2 Seconds (11.1-14.7)
[2025-10-29 08:58] LABS: Partial Thromboplastin Time 31.9 Seconds (22.3-36.8)
[2025-10-29 09:06] LABS: Anion Gap 4 mmol/L (4-12); Blood Urea Nitrogen 21 mg/dL (9-20); Calcium 9.1 mg/dL (8.4-10.2); Carbon Dioxide 28 mmol/L (22-30); Chloride 104 mmol/L (98-107); Estimated Glomerular Filt Rate > 60; Glucose 96 mg/dL (65-110); Potassium 4.7 mmol/L (3.4-5.0); Sodium 136 mmol/L (137-145)
== END 2025-10-29 08:18 | disposition home or self-care (01) ==
LOC: ANHSURGERY 08:24
PROVIDERS: Anesthesiology; PCP Student in an Organized Health Care Education/Training Program; Visit Provider Urology
DX: Z01.812 Encounter for preprocedural laboratory examination (principal); N28.9 Disorder of kidney and ureter, unspecified
CPT/HCPCS: 36415; 80048; 85610; 85730

== ENCOUNTER 2025-11-01 02:30 | Day surgery (SDC) | payer OTHER, SELFPAY ==
[2025-10-28 15:23] VITALS: BMI 30.4
--- NOTE | 2025-10-28 16:13 | PC.NURSE ---
[facility] has started construction of its new state of the art ER which will open Spring 2026. With this, we anticipate parking may be a challenge for some our surgical patients and families. Parking spaces are limited but are available for all Surgical, obstetrics, and ER patients sharing this lot. If you arrive and find you are having a hard time finding a parking space, please note that we understand the challenges, please drive around the hospital and park near Hospital Entrance 1. When you enter this entrance, you can ask a volunteer to direct or take you back to the surgical waiting area to check in. We appreciate everyone?s understanding of these expected challenges while we build for your future. Report to the Outpatient Waiting Room, entrance under the green pavilion located off [address], at time __10:00AM____ on date __11/01/25___. Planned Procedure Time: __12:00PM .? Time changes happen often and if your time is changed the preop area will call you the afternoon before. - You and your visitor will be asked to self-screen and do not enter if you have any COVID symptoms. Please call surgeon if you need to reschedule. - A mask is optional within the hospital at this time. Patients may have clear liquids (water, carbonated beverages, clear teas, apple juice) until 3 hours prior to surgery (9:00AM) with a maximum of 20 ounces. - No food from midnight until time of surgery and no smoking, or chewing tobacco (or any form of nicotine). No chewing gum, candy or mints. Take only the following medications with a SIP of water on the morning of surgery: ___AMLODIPINE, METOPROLOL, MULTAQ, SERTRALINE. MAY USE ALBUTEROL INHALER, HYDROCODONE NEEDED DO NOT STOP ANY OF YOUR OTHER PRESCRIPTION MEDICATIONS PRIOR TO SURGERY EXCEPT THE FOLLOWING Hold all vitamins and supplements for 3 days per anesthesiologist. Medications to discontinue per physician __HOLD JANNETTE PER DR MORLILO, PATIENT CALLING OFFICE TO CONFIRM Date to take last dose Please no make-up, nail ivorian, hairspray, perfume, deodorant, or body powder the day of surgery.? No jewelry (including any body piercings) or valuables the day of surgery, leave them at home.? Please take a shower or bath the night before, or the morning of, surgery with an antibacterial soap.? Wear comfortable, loose fitting clothing.? Children are encouraged to wear pajamas. - Jewelry must be removed prior to entering the operating room.? Rings and piercings that are not removed may be cut off. - The hospital will not accept responsibility for valuables.? - Please leave all valuables, including medications, at home the day of surgery. If you are going home after surgery, a licensed driver retraining instructor must drive you home.? - NO public transportation without another adult if you receive anesthesia. - We recommend that an adult stay with you for 24 hours following discharge. - We also recommend that you do not drive, make important decision, drink alcoholic beverages, or take any drugs that were not prescribed by your health care provider for at least 24 hours after your discharge time. Follow any additional instructions given to you from your surgeon. Telephone instructions given to ____PATIENT and asked if any additional questions and then verbalized understanding. Patient advised to call surgeon office or pre surgery nurse liaison [phone] if any additional questions.
[2025-11-01] VITALS (9 sets, daily range): BP systolic 109–125; BP diastolic 74–95; PULSE 65–90; RESP 12–20; TEMP 36.3–36.6; O2SAT 95–100; BMI 30.6
--- NOTE | ~2025-11-01 | XR_ITS ---
EXAM/PROCEDURE: XR stent kub - surgery HISTORY: RIGHT RETRO/STENT COMPARISON: None TECHNIQUE: Fluoroscopic images provided Fluoroscopy time: 2.1 seconds Dose: 1.01 mgy IMPRESSION: Fluoroscopic assisted urologic procedure. No radiologist present. See procedure/operative notes for complete evaluation. Reviewed, dictated and finalized at location A. [employer] [employer] IMPRESSION: Fluoroscopic assisted urologic procedure. No radiologist present. S ee procedure/operative notes for complete evaluation.
--- NOTE | 2025-11-01 08:44 | PM.HPGS ---
History of Present Illness History of Present Illness Consent: Risks, benefits, and alternatives have been discussed and questions answered. Patient agrees to proceed with procedure. Chief complaint: right kidney stones Narrative: Negrito Garcia is a 59 year old male with history of right ureteral stone status post stent placement. He presents for right ureteroscopic stone extraction. Review of Systems Review of Systems: All systems reviewed & are unremarkable except as noted in HPI and below [facility] Past Medical History Medical History (Updated 11/01/25 @ 08:46 by Samira Salas MD) Right ureteral stone Colon, diverticulosis Bloody diarrhea BPH (benign prostatic hyperplasia) Depression BMI 32.0-32.9,adult Colonoscopy planned Lower abdominal pain GERD (gastroesophageal reflux disease) BMI 31.0-31.9,adult Right inguinal hernia Inguinal mass Legionella pneumonia Atrial fibrillation BMI 28.0-28.9,adult History of Legionnaire's disease Rash SOB (shortness of breath) History of hepatitis C Patient stated it is treated. HTN (hypertension) Surgical History Surgical History History of colonoscopy History of esophagogastroduodenoscopy (EGD) H/O removal of cyst H/O removal of cyst History of inguinal hernia repair ROBOTIC ASSISTED RIH REPAIR W MESH 03/11/22 Status post laparoscopic cholecystectomy Family History Family History Father Family history of Alzheimer's disease Malignant neoplasm of prostate Sibling Diverticula of colon Hypertension Mother , brain cancer No problems noted. Social History Social History Social History: The patient lives with his life partner. He has 2 children. 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 The patient continues to smoke. Code status full code Smoking packs per day: 0.75 Smoking cigarettes per day: 15.0 Years smoked: 20 Smoking pack-years: 15.00 Smoking status: Current every day smoker Tobacco type: cigarettes Second hand tobacco smoke exposure: No Additional smoking assessment comments: 1 pkd cigarettes x 15years, claimed today 0.5 packs x 8 years Alcohol intake: current Drinks per week: 7 Alcohol use details: wine Substance use: current Substance use type: marijuana Other substance usage details: smoking occasionally Lack of Transportation: No Lack of Food: Never True Current Housing: I Have Housing Concerned About Future Housing: No Difficulty Paying Gas/Electric Bills: No Difficulty Paying for Meds: No Currently Unemployed: No Education: Associate Degree Difficulty w/ Childcare or Family Care: No Living arrangements: with family Additional living arrangements comments: PARTNER Occupation/Education: occupation 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 Gender identity (if verbalized by the patient): Male Sexual Orientation (if Verbalized by the Patient): Straight or Heterosexual Spiritual care concerns: No Meds Home Medications and Allergies Home Medications ?Medication ?Instructions ?Recorded ?Confirmed ?Type finasteride 5 mg tablet 5 mg PO DAILY 11/17/21 10/28/25 History dronedarone 400 mg tablet (Multaq) 400 mg PO BID 06/25/23 10/28/25 History sertraline 50 mg tablet 50 mg PO DAILY #90 tabs 10/11/24 10/28/25 Rx cyclobenzaprine 10 mg tablet 10 mg PO Q8H PRN Muscle Spasm #30 12/29/24 10/28/25 Rx tabs sildenafil 100 mg tablet 100 mg PO DAILY PRN sexual 08/02/25 10/28/25 Rx activity #5 tabs acetaminophen 650 mg 1,300 mg PO Q8H PRN pain 10/28/25 10/28/25 History tablet,extended release (Tylenol Arthritis Pain) amlodipine 10 mg tablet 10 mg PO QAM 10/28/25 10/28/25 History apixaban 5 mg tablet (Eliquis) 5 mg PO BID 10/28/25 10/28/25 History hydrocodone 5 mg-acetaminophen 325 1 tablet PO Q6-8H PRN pain 10/28/25 10/28/25 History mg tablet metoprolol succinate 50 mg 50 mg PO QAM 10/28/25 10/28/25 History tablet,extended release 24 hr pantoprazole 20 mg tablet,delayed 20 mg PO BID 10/28/25 10/28/25 History release Allergies Allergy/AdvReac Type Severity Reaction Status Date / Time amoxicillin Allergy Mild Skin Verified 11/01/25 08:10 Reaction Exam Const: General: comfortable and no acute distress HENMT: Face/Nose/Sinus: Normal nares present Eyes: General: appearance normal, both eyes and all related structures EOM: EOMs intact bilaterally Resp: Effort & Inspection: normal respiratory effort Cardio: Rate: regular rate Skin: General skin exam: normal color Neuro: Speech: normal speech Sensory Exam: normal sensation Extrem: General: normal to inspection Psych: Mental Status: mental status grossly normal Affect: normal affect Assessment and Plan Assessment and plan (1) Right ureteral stone: Code(s): N20.1 - Calculus of ureter Status: Acute Plan Plan cystoscopy, right ureteroscopy, laser lithotripsy, stone extraction, stent placement.
[2025-11-01] MEDS: LACTATED RINGERS 1,000 ML 30 ML IV CONT (08:45)
--- NOTE | 2025-11-01 08:47 | WPDHPUPDATE1 ---
History and Physical Update Update Date/Time: 11/01/25 08:47 History and Physical has been reviewed, including an updated exam of the patient. There are NO changes in the patient's condition. Plan cystoscopy, right ureteroscopy, laser lithotripsy, stone extraction, stent placement. Risks, benefits, and alternatives have been discussed and questions answered. Patient agrees to proceed with procedure.
[2025-11-01 09:07] LABS: Non Pathogenic Casts 0-2
[2025-11-01 09:19] LABS: Add Urine Microscopic? YES; Appearance Urine Cloudy (Clear); Glucose Urine UA Negative (Negative); Leukocyte Esterase Ur 2+ LEU/UL (Negative); Nitrate Urine Negative (Negative); Specific Grav Ur 1.020 (1.001-1.035)
--- NOTE | 2025-11-01 10:49 | WPDHPUPDATE1 ---
History and Physical Update Update Date/Time: 11/01/25 10:49 History and Physical has been reviewed, including an updated exam of the patient. There are NO changes in the patient's condition. Plan cystoscopy, right ureteroscopy, laser lithotripsy, stone extraction, stent placement, possible retrograde pyelogram. Risks, benefits, and alternatives have been discussed and questions answered. Patient agrees to proceed with procedure.
--- NOTE | 2025-11-01 10:54 | WPDANESEPPF ---
Anes - Initial Pre Proc Eval Procedure: Operation Date: 11/01/25 10:00 Proposed Procedures p Cystoscopy, Right Ureteroscopy, Possible Right Retrograde Pyelogram, Possible Right Stone Extraction, Possible Right Stent Placement, Possible Holmium Laser - Samira Salas MD Date/Time: 11/01/25 10:54 Surgeon: Samira Salas MD Pre Op Diagnosis: right kidney stones Patient Data Age: 59 Gender: M Height: 1.83 m Weight: 102.4 kg Last Vital Signs Temp 36.3 C L 11/01/25 08:45 Pulse 81 11/01/25 08:45 Resp 16 11/01/25 08:45 BP 125/94 H 11/01/25 08:45 Pulse Ox 98 11/01/25 08:45 Allergies Allergy/AdvReac Type Severity Reaction Status Date / Time amoxicillin Allergy Mild Skin Verified 11/01/25 08:10 Reaction Home Medications ?Medication ?Instructions ?Recorded ?Confirmed ?Type finasteride 5 mg tablet 5 mg PO DAILY 11/17/21 10/28/25 History dronedarone 400 mg tablet (Multaq) 400 mg PO BID 06/25/23 11/01/25 History sertraline 50 mg tablet 50 mg PO DAILY #90 tabs 10/11/24 11/01/25 Rx cyclobenzaprine 10 mg tablet 10 mg PO Q8H PRN Muscle Spasm #30 12/29/24 10/28/25 Rx tabs sildenafil 100 mg tablet 100 mg PO DAILY PRN sexual 08/02/25 10/28/25 Rx activity #5 tabs acetaminophen 650 mg 1,300 mg PO Q8H PRN pain 10/28/25 10/28/25 History tablet,extended release (Tylenol Arthritis Pain) amlodipine 10 mg tablet 10 mg PO QAM 10/28/25 11/01/25 History apixaban 5 mg tablet (Eliquis) 5 mg PO BID 10/28/25 11/01/25 History hydrocodone 5 mg-acetaminophen 325 1 tablet PO Q6-8H PRN pain 10/28/25 10/28/25 History mg tablet metoprolol succinate 50 mg 50 mg PO QAM 10/28/25 11/01/25 History tablet,extended release 24 hr pantoprazole 20 mg tablet,delayed 20 mg PO BID 10/28/25 10/28/25 History release Laboratory Tests 11/01/25 08:28 Urine Color Elvia (Yellow) Urine Appearance Cloudy H (Clear) Urine pH 6.5 (5.0-9.0) Ur Specific [place] 1.020 (1.001-1.035) Urine Protein 3+ H mg/dL (Negative) Urine Glucose (UA) Negative mg/dL (Negative) Urine Ketones Negative mg/dL (Negative) Ur Blood (Man) 3+ H (Negative) Urine Nitrate Negative (Negative) Urine Bilirubin Negative (Negative) Urine Urobilinogen 1.0 mg/dL (<2.0) Leukocyte Esterase Rfl 2+ H JUS/UL (Negative) Urine RBC >100 H /hpf (0-2) Urine WBC 51-100 H /hpf (0-3) Ur Squamous Epith Cells None seen /hpf (Few) Urine Bacteria None seen /hpf Urine Casts 0-2 Patient hx anesthesia problems: none Family hx anesthesia problems: none Results Review: All pre-operative results and documents have been reviewed as part of the pre-operative evaluation. ON LICENSE OF [facility] Past Medical History Medical History Right ureteral stone Colon, diverticulosis Bloody diarrhea BPH (benign prostatic hyperplasia) Depression BMI 32.0-32.9,adult Colonoscopy planned Lower abdominal pain GERD (gastroesophageal reflux disease) BMI 31.0-31.9,adult Right inguinal hernia Inguinal mass Legionella pneumonia Atrial fibrillation BMI 28.0-28.9,adult History of Legionnaire's disease Rash SOB (shortness of breath) History of hepatitis C Patient stated it is treated. HTN (hypertension) Surgical History Surgical History History of colonoscopy History of esophagogastroduodenoscopy (EGD) H/O removal of cyst H/O removal of cyst History of inguinal hernia repair ROBOTIC ASSISTED RIH REPAIR W MESH 03/11/22 Status post laparoscopic cholecystectomy Family History Family History Father Family history of Alzheimer's disease Malignant neoplasm of prostate Sibling Diverticula of colon Hypertension Mother , brain cancer No problems noted. Social History Social History Social History: The patient lives with his life partner. He has 2 children. 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 The patient continues to smoke. Code status full code Smoking packs per day: 0.75 Smoking cigarettes per day: 15.0 Years smoked: 20 Smoking pack-years: 15.00 Smoking status: Current every day smoker Tobacco type: cigarettes Second hand tobacco smoke exposure: No Additional smoking assessment comments: 1 pkd cigarettes x 15years, claimed today 0.5 packs x 8 years Alcohol intake: current Drinks per week: 7 Alcohol use details: wine Substance use: current Substance use type: marijuana Other substance usage details: smoking occasionally Lack of Transportation: No Lack of Food: Never True Current Housing: I Have Housing Concerned About Future Housing: No Difficulty Paying Gas/Electric Bills: No Difficulty Paying for Meds: No Currently Unemployed: No Education: Associate Degree Difficulty w/ Childcare or Family Care: No Living arrangements: with family Additional living arrangements comments: PARTNER Occupation/Education: occupation 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 Gender identity (if verbalized by the patient): Male Sexual Orientation (if Verbalized by the Patient): Straight or Heterosexual Spiritual care concerns: No Anes - Eval Final PreProcedure Day of Procedure 11/01/25 10:54 Patient weight: obese Heart: regular rate and rhythm and irregular rhythm Lungs: decreased breath sounds Airway: Mallampati scale class II Neurological: alert and oriented Last oral intake: >/= 8 hours ASA classification: III Emergent: no Anesthetic plan: proceed Anesthesia type and monitoring: general LMA and standard monitoring Results Review: All pre-operative results and documents have been reviewed as part of the pre-operative evaluation. Informed Consent: The patient's anesthetic plan and its attendant risks and benefits were discussed with the patient/family/POA. Questions were solicited and answers provided to the satisfaction of the patient/family/POA.
[2025-11-01] MEDS: ceFAZolin 2 GM in SODIUM CHLORIDE 0.9% IV 50 ML 100 ML IVPB (10:58)
[2025-11-01] MEDS: SCOPOLAMINE 1 MG PATCH 1 PATCH TRANSDERM (11:25)
--- NOTE | 2025-11-01 12:08 | SUR.OPER ---
culture right renal pelvis fluid sent to lab via PCT Saran, given to Jennifer in [place] at 1208
--- NOTE | 2025-11-01 12:25 | S_PTH ---
PATIENT: Negrito Garcia LOC: [facility] U#:[id number] AGE/SX: 59/M ROOM: RE11/01/[address]: Samira Salas MD : 1965 BED: DIS: 11/01/2025 SPEC #: [id number] RECD: 11/01/25 13:10 STATUS: [place] REQ #: [id number] ARMANDO: 11/01/25 12:[address]: Samira Salas DEPT: [facility] Surgical RECD BY: Joy Bonilla ENTERED: 11/01/25 13:10 SP TYPE: Surgical OTHR DR: Jordan Alas, DO Tissues: A - Stone Procedures: Gross Exam Level 1 Crystalline Analysis
--- NOTE | 2025-11-01 12:59 | SUR.OPER ---
Myles sent for culture given to [facility] Saran at 1244 to deliver to Microbiology; Saran handed culture off to Tereza at 1250
--- NOTE | 2025-11-01 13:07 | W.PM.PROC2 ---
Procedure Note - Detailed Date of Procedure 11/01/25 Pre-op Diagnosis Right ureteral and renal stones Post-op Diagnosis Same Procedure Performed The patient was correctly identified and informed consent was obtained. ?The patient was taken to the operating room and placed in the dorsal lithotomy position.? Intravenous antibiotics were administered for infection prophylaxis and bilateral SCDs were placed for DVT prophylaxis. The patient was prepped and draped in the usual sterile fashion. ?Rigid cystoscopy was performed. ?The bladder mucosa appeared normal. ?The ?ureteral stent?was identified, pulled to the meatus?and a ?guidewire was passed into the kidney followed by a dual lumen catheter. ?Retrograde pyelogram revealed hydronephrosis. ?A Superstiff guidewire was then placed through the dual lumen catheter. Next, over the Superstiff guidewire, a Fr cm ureteral access sheath was passed. The stones were then identified and fragmented with Holmium laser. ?The stone fragments were extracted with a basket. Once the collecting system appeared free of stone, aside from those that were too small to fit within the basket and which will pass on their own, the ureteroscope was withdrawn, visualizing the ureter in its entirety upon removal. There were no ureteral injuries noted.? Under direct vision a Fr x cm ureteral stent was placed.? The bladder was then drained.? The patient tolerated the procedure well. The patient will undergo stent removal in the office in 1-2 weeks. Surgeon Samira Salas MD Anesthesia General Indications Right ureteral stone status post stent placement Findings 2 right ureteral stones, upper and mid calyceal stones, interstitial calcifications throughout the collecting system Description of Procedure The patient was correctly identified and informed consent was obtained. ?The patient was taken to the operating room and placed in the dorsal lithotomy position. ?Intravenous antibiotics were administered for infection prophylaxis and bilateral SCDs were placed for DVT prophylaxis. The patient was prepped and draped in the usual sterile fashion. ?Rigid cystoscopy was performed. ?The bladder mucosa appeared normal. ?The right ureteral stent?was identified,?grasped, pulled to the meatus and a Sensor?guidewire was passed into the kidney. ?Semirigid ureteroscopy was performed, however the stone was not identified to the extent the ureteroscope would easily pass. Therefore flexible ureteroscopy was performed and the stone identified more proximally. The stone was then fragmented with Holmium laser and fragments were removed with a 0-tip basket and/or flushed into the bladder.? Flexible ureteroscopy was performed to the proximal ureter to assess for migration of fragments. ?The ureteroscope was passed to the kidney collecting system thoroughly and inspected. There and chest interstitial calcifications throughout the collecting system. Mid upper calices were several stones. These were dusted. Several stone fragments were removed the use of a ZeroTip basket. The collecting system was free of stone aside those too small to fit within the basket and which will pass on their own, the ureteroscope was withdrawn, visualizing the ureter in its entirety upon removal. There was noted to be edema at the site of the previously obstructing stone. There were no ureteral injuries. ?Under direct vision a 6Fr x 28cm ureteral stent was placed with the proximal end coiling within the kidney and the distal end within the bladder. ?The bladder was then drained. ?The stones were sent for chemical analysis and culture. ?The patient tolerated the procedure well. The patient will undergo stent removal in the office in 1-2 weeks. Estimated Blood Loss 0 Condition Stable Disposition PACU
[2025-11-01] MEDS: fentaNYL CITRATE INJ (*CRX) 100 MCG/2 ML VIAL 25 MCG IV PUSH (13:26)
== END 2025-11-01 14:17 | disposition home or self-care (01) ==
PROVIDERS: PCP Student in an Organized Health Care Education/Training Program; Visit Provider Urology
PROC: (CPT 52352; principal; 2025-11-01 10:00)
DX: N20.2 Calculus of kidney with calculus of ureter (principal); F17.210 Nicotine dependence, cigarettes, uncomplicated; F12.90 Cannabis use, unspecified, uncomplicated; E66.9 Obesity, unspecified; Z68.30 Body mass index [BMI] 30.0-30.9, adult
CPT/HCPCS: 52356; 81001; 82365; 87070; 87075; 87086; 87205; 88300; J0690; A9270; C1769; C2617; J1100; J2250; J2270; J2371; J2405; J2704; J3010; J7120